=== PATIENT | male | born 1990 | race Caucasian/White ===

== ENCOUNTER → 2016-11-01 | Outpatient (CLI) | payer OTHER ==
--- NOTE | 2016-11-01 13:18 | XR ---
EXAMINATION TYPE: XR knee complete RT DATE OF EXAM: 11/01/2016 CLINICAL HISTORY: Right knee pain and swelling after injury. TECHNIQUE: Three views of the right knee are obtained. COMPARISON: None. FINDINGS: There is no acute fracture/dislocation evident in right knee. The tri-compartment joint s paces appear within normal limits. Increased density suprapatellar bursa could reflect moderate joint effusion, nonspecific finding. IMPRESSION: There is no acute fracture or dislocation in the right knee. Possible moderate suprapate llar joint effusion.
== END | disposition home or self-care (01) ==
LOC: RADXRMAIN 12:59
PROVIDERS: ATTEND Emergency Medicine
DX: S83.401A Sprain of unspecified collateral ligament of right knee, initial encounter (principal)

== ENCOUNTER → 2016-11-09 | Outpatient (CLI) | payer OTHER ==
--- NOTE | 2016-11-09 13:38 | MR ---
EXAMINATION TYPE: MR knee RT wo con DATE OF EXAM: 11/09/2016 COMPARISON: NONE HISTORY: Sprain of collateral ligament, right knee. Injury. TECHNIQUE: Multiplanar, multisequence imaging of the right knee is performed without IV contrast. FINDINGS: MEDIAL MENISCUS: Anterior and posterior horns are intact without tear. LATERAL MENISCUS: Anterior and posterior horns are intact without tear. Anterior and posterior roots appear intact. Meniscal femoral ligaments are intact. CRUCIATE LIGAMENTS: The anterior and posterior cruciate ligaments are intact and unremarkable. COLLATERAL LIGAMENTS: The medial collateral ligament and lateral collateral ligament complex are inta ct . However, there is high signal seen superficial to the medial collateral ligament suggesting a gr lorne 1 sprain. EXTENSOR MECHANISM: Visualized quadriceps and patellar tendons are intact. EFFUSION: Moderate suprapatellar joint effusion is seen without evidence of synovitis or abnormal th ickening of the plica. Patellar retinacula are intact.. POPLITEAL CYST: No popliteal/metcalf cyst. TRICOMPARTMENT SPACES: Unremarkable. CARTILAGE: Focal full-thickness cartilaginous defect is appreciated in the lateral weightbearing surf carla of the femoral condyle measuring 7.7 mm x 7.1 mm. Increased bone marrow signal deep to this is th ought to be related to the recent injury rather than the chondral defect. BONE MARROW SIGNAL: Osseous contusion is seen of the anterior distal lateral femoral condyle with cor responding increased PD signal and decreased T1 signal. No contusion is seen of the tibia laterally, however medially there is osseous contusion anteriorly with overlying subcutaneous edema. OTHER: Subcutaneous edema is seen within the popliteal fossa with no focal fluid collection.. IMPRESSION: 1. Grade 1 medial collateral ligament sprain with no tear. 2. Osseous contusion of the anterior distal lateral femoral condyle and medial anterior tibia with as sociated soft tissue swelling 3. Moderate suprapatellar joint effusion with no evidence of synovitis. 4. Focal full-thickness cartilaginous defects of the weightbearing surface of the distal lateral femo ral condyle.
== END | disposition home or self-care (01) ==
LOC: RADMRIMAIN 07:13
PROVIDERS: ATTEND Emergency Medicine
DX: S83.411A Sprain of medial collateral ligament of right knee, initial encounter (principal); S70.11XA Contusion of right thigh, initial encounter; S80.11XA Contusion of right lower leg, initial encounter; M25.461 Effusion, right knee

== ENCOUNTER → 2018-08-01 | Outpatient (CLI) | payer BC ==
--- NOTE | 2018-08-01 21:39 | MR ---
EXAMINATION TYPE: MR knee RT wo con DATE OF EXAM: 08/01/2018 COMPARISON: Prior MRI right knee November 09, 2016. HISTORY: Pain in right knee per order. Outer pain and locking for one year after sports injury per pa tient. TECHNIQUE: Multiplanar, multisequence images of the knee is performed without IV contrast. FINDINGS: MEDIAL MENISCUS: Anterior and posterior horns are intact without tear. LATERAL MENISCUS: Anterior and posterior horns are intact without tear. CRUCIATE LIGAMENTS: The anterior and posterior cruciate ligaments are intact and unremarkable. COLLATERAL LIGAMENTS: The medial collateral ligament and lateral collateral ligament complex are inta ct and unremarkable. EXTENSOR MECHANISM: Visualized quadriceps and patellar tendons are intact. EFFUSION: No significant suprapatellar joint effusion. POPLITEAL CYST: No popliteal/metcalf cyst. TRICOMPARTMENT SPACES: Tricompartment joint spaces are fairly well maintained. Mild tibial condylar s purring is present. CARTILAGE: No significant chondromalacia patella. BONE MARROW SIGNAL: There is new heterogeneous incr eased T2 signal involving anterolateral tibial plateau sagittal image 24 for reference. There is an a dditional area of heterogeneous increased T2 signal with focus of low T1 signal measuring 7 to 8 mm t ransversely coronal image 20 x 14 mm AP diameter sagittal image 22 involving the distal lateral femor al condyle. Some thinning and adjacent fissuring of articular cartilage is noted. OTHER: No additional significant abnormality is appreciated. IMPRESSION: 1. New large area of osseous contusion and/or bone marrow edema involving the anterior half of the la teral tibial plateau with adjacent area of involvement centrally in the distal lateral femoral condyl e, latter felt to reflect progression of osteochondral defect. No free osteochondral fragment noted. 2. No meniscal or ligamentous tears are seen.
== END ==
LOC: RADMRIMAIN 08:07
PROVIDERS: ATTEND Orthopaedic Surgery
DX: M25.561 Pain in right knee (principal)

== ENCOUNTER → 2018-09-07 | Outpatient (CLI) | payer BC ==
[2018-09-07 13:06] LABS: Basophils % (A) 1 %; Eosinophils # (A) 0.1 k/uL (0-0.7); Eosinophils % (A) 3 %; HCT 42.5 % (39.0-53.0); Lymphocytes # (A) 1.1 k/uL (1.0-4.8); Lymphocytes % (A) 27 %; MCH 28.5 pg (25.0-35.0); MCV 86.3 fL (80.0-100.0); Mean Platelet Volume 7.7; Monocytes # (A) 0.4 k/uL (0-1.0); Monocytes % (A) 9 %; Neutrophils # (A) 2.4 k/uL (1.3-7.7); Neutrophils % (A) 58 %; Platelet Count 208 k/uL (150-450); RBC 4.92 m/uL (4.30-5.90); RDW 13.2 % (11.5-15.5); WBC 4.1 k/uL (3.8-10.6)
[2018-09-07 13:20] LABS: Potassium 4.5 mmol/L (3.5-5.1)
== END | disposition home or self-care (01) ==
LOC: LABPAT 12:23
PROVIDERS: ATTEND Orthopaedic Surgery
DX: Z01.812 Encounter for preprocedural laboratory examination (principal); M23.91 Unspecified internal derangement of right knee
CPT/HCPCS: 80051; 85025

== ENCOUNTER → 2018-09-14 | Day surgery (SDC) | payer BC ==
[2018-09-11 13:02] VITALS: BMI 22.4
--- NOTE | 2018-09-13 10:08 | HP ---
HISTORY AND PHYSICAL CHIEF COMPLAINT: Right knee pain. 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 He notes another player fell on him. He notes lateral pain along with difficulty with standing and walking. He notes his knee feels unstable. It intermittently swells. It bothers him daily. He has tried anti- inflammatories without much relief. PAST MEDICAL HISTORY: Negative. PAST SURGICAL HISTORY: Negative. CURRENT MEDICATIONS: Doxycycline. ALLERGIES: He has allergies to CEFTIN. FAMILY HISTORY: Significant for cancer. SOCIAL HISTORY: Negative for current tobacco or alcohol use. REVIEW OF SYSTEMS: Sixteen-point review of systems otherwise reviewed and is noncontributory. PHYSICAL EXAMINATION: On examination, the patient is approximately 6 feet 1 inch, 170 pounds of mesomorphic habitus. HEENT exam is nonfocal. Neck is supple. He has painless passive motion of the right hip. Straight leg raise is negative. Active motion right knee -4 to 140 degrees of flexion. He is tender about the lateral joint line. Collaterals are stable, Nishi's negative, Anna's elicits lateral pain. His distal neurovascular exam appears intact in the right lower extremity. MRI report from 08/01/2018 shows a questionable osteochondral defect about the lateral femoral condyle in addition to extensive edema involving the lateral tibial plateau. IMPRESSION: Internal derangement right knee with lateral femoral condyle chondral injury. RECOMMENDATIONS: I talked to the patient at length regarding his condition along with treatment options. At this point, he is quite symptomatic and opts to proceed with surgery. We will plan to proceed with arthroscopic evaluation with possible lateral femoral chondrectomy and possible microfracture. Risks and benefits were discussed at length in layman's terms. We will likely perform that as an outpatient procedure. MMODL / IJN: [id number] /
[~2018-09-14] MED LIST: CLINDAMYCIN 600 MG in DEXTROSE 5% IN WATER 50 ML IVPB ONE; DEXAMETHASONE SOD PHOSPHATE 10 MG/ML 1 ML VIAL IV ONE; EPINEPHrine (PF) 1 ML in SODIUM CHLORIDE 0.9% IRRIGATIO 3,000 ML IRRIGATION ONE; HYDROcodone/APAP 5-325MG 1 EACH TAB PO ONE; LACTATED RINGERS 1,000 ML IV SCH; LIDOCAINE 1% 20 ML VIAL (10MG/ML) FOR IV START INTRADERMA ONE; LIDOCAINE 1% INJ 10MG/ML (20 ML MDV) ONE; MIDAZOLAM 2 MG/2 ML VIAL IV PRN; MIDAZOLAM 2 MG/2 ML VIAL ONE; ONDANSETRON 4 MG/2 ML VIAL IVP ONE; PROPOFOL 10 MG/ML 20 ML VIAL IV ONE; SCOPOLAMINE 1.5MG/72HR PATCH TRANSDERM ONE; fentaNYL (PF) 50 MCG/ML 2 ML AMP ONE
--- NOTE | 2018-09-14 11:15 | P.OP ---
Date of Procedure: 09/14/18 Preoperative Diagnosis: Right knee internal derangement Postoperative Diagnosis: Right knee grade 3/4 chondral injury distal lateral femoral condyle, loose body 2 Procedure(s) Performed: Right knee arthroscopic lateral femoral chondrectomy, microfracture lateral femoral condyle, loose body removal 2 measuring 5 x 8 mm and 1 x 1 cm. Anesthesia: PHILIPPE Surgeon: Sander Lee Estimated Blood Loss (ml): 10 Pathology: none sent Condition: stable Disposition: PACU Indications for Procedure: The patient is a 27-year-old male who presents with progressive right knee pain and mechanical symptoms after previous injury despite conservative measures. A discussion of the risks and benefits of operative intervention versus continued conservative measures was made with patient. He opted to proceed with surgery. Operative risks to include infection, neurovascular injury, development of blood clots, possible incomplete resolution of symptoms, possible worsening symptoms and need for subsequent procedures was discussed. Informed consent was obtained. Operative Findings: As below Description of Procedure: The patient was brought to the operating room, and after induction of general anesthesia examined the right knee. Collaterals were stable, Nishi was negative, and posterior drawer was negative. The right lower extremity was prepped and draped in a normal fashion. A superior lateral portal was made through a 3 mm skin incision superior and lateral to the patella. This was used for outflow. A lateral portal was made through a 5 mm vertical skin incision lateral to the patella tendon above the joint line. Diagnostic arthroscopy was performed. On inspection of the medial compartment, no significant meniscal or cartilage pathology was noted. On inspection of the notch, the anterior cruciate ligament appeared to be intact. On inspection of the lateral compartment there was a grade 3/4 chondral injury measuring 5 x 8 mm on the distal lateral portion of the lateral femoral condyle. There was a loose chondral fragment debrided back to stable base with a motorized shaver. 2 loose bodies were noted in the lateral compartment removed with a grasper. A did extended medial incision to help facilitate this. The first measured 1 x 1 cm, and the second 5 x 8 mm. No significant meniscal pathology was noted. On inspection of the patellofemoral articulation there was mild chondral fibrillation however no loose chondral fragments. The gutters were clear debris. The knee was then thoroughly irrigated. The portals were closed with Steri-Strips. A sterile dressing was applied in addition to a compression stocking. The patient was awoken from general anesthesia and transferred to recovery room in good condition. Blood loss was estimated at 10 mL. No complications were incurred.
[2018-09-14 11:26] VITALS: TEMP 97.1
[2018-09-14] MEDS: HYDROmorphone 0.5 MG/0.5 ML SYRINGE IVP PRN ×2 (11:42→11:47)
[2018-09-14 12:26] VITALS: BP 124/80; PULSE 62; RESP 16
== END | disposition home or self-care (01) ==
LOC: OR 08:57
PROVIDERS: ATTEND Orthopaedic Surgery
DX: S89.91XA Unspecified injury of right lower leg, initial encounter (principal); M23.41 Loose body in knee, right knee; Y93.22 Activity, ice hockey; Z79.899 Other long term (current) drug therapy; Z88.1 Allergy status to other antibiotic agents
CPT/HCPCS: 29879; J2250; J1100; J2405; J0171; J2001; J3010; J2704; J1170

== ENCOUNTER → 2019-09-11 | Outpatient (CLI) | payer BC ==
[2019-09-11 12:05] LABS: Basophils # (A) 0.1 k/uL (0-0.2); Basophils % (A) 1 %; Eosinophils # (A) 0.2 k/uL (0-0.7); Eosinophils % (A) 5 %; HCT 43.3 % (39.0-53.0); HGB 14.8 gm/dL (13.0-17.5); Lymphocytes # (A) 1.1 k/uL (1.0-4.8); Lymphocytes % (A) 26 %; MCH 29.7 pg (25.0-35.0); MCHC 34.1 g/dL (31.0-37.0); MCV 87.2 fL (80.0-100.0); Mean Platelet Volume 8.5; Monocytes # (A) 0.3 k/uL (0-1.0); Monocytes % (A) 7 %; Neutrophils # (A) 2.5 k/uL (1.3-7.7); Neutrophils % (A) 58 %; Platelet Count 209 k/uL (150-450); RBC 4.96 m/uL (4.30-5.90); WBC 4.3 k/uL (3.8-10.6)
[2019-09-11 18:34] LABS: African American GFR (CKD) 104.6 (60.0-200.0); Albumin 4.5 g/dL (3.80-4.90); Albumin/Globulin Ratio 1.88 (1.60-3.17); BUN/Creat Ratio 10.91 Ratio (12.00-20.00); Calcium 9.4 mg/dL (8.7-10.3); Globulin 2.4 g/dL (1.6-3.3); Non-African American GFR(CKD) 90.2 (60.0-200.0); Potassium 4.5 mmol/L (3.5-5.5); Total Bilirubin 0.5 mg/dL (0.2-1.2); Total Protein 6.9 g/dL (6.2-8.2)
[2019-09-11 18:41] LABS: T4, Free (Free Thyroxine) 1.5 ng/dL (0.80-1.80)
== END | disposition home or self-care (01) ==
LOC: LABWHC1 10:21
PROVIDERS: ATTEND Internal Medicine
DX: K59.09 Other constipation (principal)
CPT/HCPCS: 36415; 80053; 84439; 84443; 85025

== ENCOUNTER 2019-10-10 09:52 | Day surgery (SDC) | payer BC ==
[2019-10-08 14:42] VITALS: BMI 21.7
[~2019-10-10 09:52] MED LIST changes: -CLINDAMYCIN 600 MG in DEXTROSE 5% IN WATER 50 ML IVPB ONE; -EPINEPHrine (PF) 1 ML in SODIUM CHLORIDE 0.9% IRRIGATIO 3,000 ML IRRIGATION ONE; -HYDROcodone/APAP 5-325MG 1 EACH TAB PO ONE; +HYDROmorphone 0.5 MG/0.5 ML SYRINGE IVP PRN; -LIDOCAINE 1% 20 ML VIAL (10MG/ML) FOR IV START INTRADERMA ONE; -LIDOCAINE 1% INJ 10MG/ML (20 ML MDV) ONE; -MIDAZOLAM 2 MG/2 ML VIAL IV PRN; -MIDAZOLAM 2 MG/2 ML VIAL ONE; -PROPOFOL 10 MG/ML 20 ML VIAL IV ONE; -SCOPOLAMINE 1.5MG/72HR PATCH TRANSDERM ONE; -fentaNYL (PF) 50 MCG/ML 2 ML AMP ONE
[2019-10-10 10:10] VITALS: TEMP 97.5
[2019-10-10] MEDS ORDERED: LIDOCAINE 1% (10MG/ML) FOR IV START INTRADERMA ONE (10:19)
[2019-10-10] MEDS ORDERED: PROPOFOL 10 MG/ML 20 ML VIAL IV ONE (10:47)
[2019-10-10] MEDS ORDERED: LIDOCAINE 1% INJ 10MG/ML (20 ML MDV) ONE (10:47)
[2019-10-10] MEDS ORDERED: IV FLUID CONTINUATION 250 ML IV ONE (11:17)
--- NOTE | 2019-10-10 11:17 | P.PCN ---
Date of Procedure: 10/10/19 Description of Procedure: BRIEF HISTORY: Patient is a 28-year-old male presenting for outpatient colonoscopy for altered bowel function. Patient had been seen in the gastroenterology clinic complaining of altered bowel function. No improvement with MiraLAX therapy. No prior endoscopy reported. PROCEDURE PERFORMED: Colonoscopy with biopsy. PREOPERATIVE DIAGNOSIS: Altered bowel function, no prior colonoscopy reported. ESTIMATED BLOOD LOSS: Minimal. IV sedation per Anesthesia. PROCEDURE: After informed consent was obtained, the patient, was brought into the endoscopy unit. IV sedation was administered by Anesthesia under continuous monitoring. Digital rectal examination was normal. Initially the Olympus CF-190 flexible video colonoscope was then inserted in the rectum, gradually advanced into the cecum without any difficulty. Careful examination was performed as the scope was gradually being withdrawn. Ileocecal valve and the appendiceal orifice were visualized and appeared normal. Prep was excellent. Mucosa of the cecum, ascending colon, transverse colon, descending colon, sigmoid colon, and rectum appeared normal, with biopsies of the right and left colon in the setting of altered bowel function. Normal-appearing terminal ileum with biopsies taken. Retroflexion was performed in the rectum and no lesions were seen, located internal hemorrhoids noted. The patient tolerated the procedure well. IMPRESSION: Normal-appearing colon from rectum to cecum, with biopsies of the right and left colon in the setting of altered bowel function. Normal-appearing terminal ileum, random biopsies taken. RECOMMENDATIONS: Findings of this examination were discussed with the patient. Okay to resume diet. Okay to resume medication. Continue twice daily MiraLAX therapy. Follow up in clinic as previously scheduled.
[2019-10-10 11:50] VITALS: RESP 20
[2019-10-10 11:52] VITALS: BP 111/68; PULSE 67
== END 2019-10-10 12:06 | disposition home or self-care (01) ==
LOC: ORWHC2ENDO 09:52
PROVIDERS: ATTEND Internal Medicine
DX: R19.4 Change in bowel habit (principal); Z88.1 Allergy status to other antibiotic agents; Z98.890 Other specified postprocedural states
CPT/HCPCS: 88305; 45380; J2001; J2704

== ENCOUNTER 2022-09-22 02:49 | Observation (INO) | payer BC ==
[2022-09-22] MEDS ORDERED: DEXAMETHASONE SOD PHOSPHATE 10 MG/ML 1 ML VIAL IVP STA (03:44)
--- NOTE | 2022-09-22 03:48 | ED ---
Skin/Abscess/FB HPI - General Chief complaint: Skin/Abscess/Foreign Body Stated complaint: Infection on scalp Time Seen by Provider: 09/22/22 03:15 Source: patient, RN notes reviewed, old records reviewed Mode of arrival: ambulatory Limitations: no limitations - History of Present Illness Initial comments: This is a 29-year-old male DF for evaluation patient Dese for evaluation of significant swelling scalp with hair loss. Patient does admit to significant hair loss currently and swelling recently on antibiotics with treatment for folliculitis and had improvement. Patient symptoms about a month now with increasing and worse hair loss, antibiotics currently not working MD complaint: rash, abscess/boil, discoloration, other (Hair loss on scalp) -: month(s) Location: head Severity: severe Severity scale (1-10): 8 Consistency: constant Improves with: none Worsens with: none Context: new medication, recent illness, recent antibiotic Associated symptoms: denies other symptoms Treatments Prior to Arrival: antibiotic - Related Data Home Medications Medication Instructions Recorded Confirmed Doxycycline Hyclate 100 mg PO BID 09/22/22 09/22/22 Ibuprofen [Advil] 200 - 600 mg PO Q8H PRN 09/22/22 09/22/22 Previous Rx's Medication Instructions Recorded Docusate [Colace] 100 mg PO BID PRN #60 capsule 09/24/22 Famotidine [Pepcid] 20 mg PO BID #30 tab 09/24/22 Ferrous Sulfate [Feosol] 325 mg PO DAILY #30 tab 09/24/22 Allergies Allergy/AdvReac Type Severity Reaction Status Date / Time cefuroxime [From Ceftin] AdvReac Diarrhea Verified 09/22/22 08:17 Review of Systems ROS Statement: Those systems with pertinent positive or pertinent negative responses have been documented in the HPI. ROS Other: All systems not noted in ROS Statement are negative. Past Medical History Past Medical History: Skin Disorder Additional Past Medical History / Comment(s): acne, constipation, blood in stool. History of Any Multi-Drug Resistant Organisms: None Reported Past Surgical History: Orthopedic Surgery Additional Past Surgical History / Comment(s): cyst on back removedd, arthroscopy knee. Past Anesthesia/Blood Transfusion Reactions: No Reported Reaction Past Psychological History: No Psychological Hx Reported Smoking Status: Never smoker Past Alcohol Use History: Occasional Past Drug Use History: None Reported - Past Family History Mother Family Medical History: No Reported History General Exam - General Exam Comments Initial Comments: Significant hair loss to the scalp with body edematous area Limitations: no limitations General appearance: alert, in no apparent distress Head exam: Present: atraumatic, normocephalic, normal inspection, other (Significant swelling and abscess to the scale) Eye exam: Present: normal appearance, PERRL, EOMI. Absent: scleral icterus, conjunctival injection, periorbital swelling ENT exam: Present: normal exam, mucous membranes moist Neck exam: Present: normal inspection. Absent: tenderness, meningismus, lymph adenopathy Respiratory exam: Present: normal lung sounds bilaterally. Absent: respiratory distress, wheezes, rales, rhonchi, stridor Cardiovascular Exam: Present: regular rate, normal rhythm, normal heart sounds. Absent: systolic murmur, diastolic murmur, rubs, gallop, clicks GI/Abdominal exam: Present: soft, normal bowel sounds. Absent: distended, tenderness, guarding, rebound, rigid Extremities exam: Present: normal inspection, full ROM, normal capillary refill. Absent: tenderness, pedal edema, joint swelling, calf tenderness Back exam: Present: normal inspection Neurological exam: Present: alert, oriented X3, CN II-XII intact Psychiatric exam: Present: normal affect, normal mood Skin exam: Present: warm, dry, intact, normal color. Absent: rash Course Vital Signs 09/22/22 03:04 Temperature 98.6 F Pulse Rate 102 H Respiratory 18 Rate Blood Pressure 138/90 O2 Sat by Pulse 98 Oximetry - Reevaluation(s) Reevaluation #1: 09/22/22 03:56 Medical records reviewed Reevaluation #2: 09/22/22 03:57 Patient symptoms unchanged Reevaluation #3: 09/22/22 06:19 Patient informed results and questions answered Reevaluation #4: 09/22/22 03:57 Was pt. sent in by a medical professional or institution? @ -no Did you speak to anyone other than the patient for history? @ -no Did you review nursing and triage notes? @ -agree Were old charts reviewed? @ -yes Differential Diagnosis? @ -prior EKG interpreted by me (3pts min.)? @ -no X-rays interpreted by me (1pt min.)? @ -no CT interpreted by me (1pt min.)? @ -yes U/S interpreted by me (1pt. min.)? @ -no What testing was considered but not performed? (CT, X-rays, U/S, labs)? Why? @ -no What meds were considered but not given? Why? @ -no Did you discuss the management of the patient with other professionals? @ -no Did you reconcile home meds? @ -no Was smoking cessation discussed for >3mins.? @ -no Was critical care preformed (if so, how long)? @ -no Were there social determinants of health that impacted care today? How? (Homelessness, low income, unemployed, alcoholism, drug addiction, transportation, low edu. Level, literacy, decrease access to med. care, residential, rehab)? @ -no Was there de-escalation of care discussed even if they declined? (Discuss DNR or withdrawal of care, Hospice)? @ -no What co-morbidities impacted this encounter? (DM, HTN, Smoking, COPD, CAD, Cancer, CVA, Hep., AIDS, mental health diagnosis, sleep apnea, morbid obesity)? @ -none Was patient admitted / discharged? @ -31 male to the emergency department for evaluation presents today for evaluation in regards to significant swelling of scalp, scalp abscess, patient does have significant swelling and called spot, alopecia and folliculitis. Will place patient on antibiotics and antifungal and monitoring of hemoglobin Admitted Undiagnosed new problem with uncertain prognosis? @ -no Drug Therapy requiring intensive monitoring for toxicity (Heparin, Nitro, Insulin, Cardizem)? @ -no Were any procedures done? @ -no Diagnosis/symptom? @ -Scalp abscess Acute, or Chronic, or Acute on Chronic? @ -acute Uncomplicated (without systemic symptoms) or Complicated (systemic symptoms)? @ -complicated Side effects of treatment? @ -no Exacerbation, Progression, or Severe Exacerbation] @ -no Poses a threat to life or bodily function? @ -yes with severe infection - Consultations Consultation #1: Spoke with admitting physicians agreeable admit this patient Medical Decision Making - Medical Decision Making 31 male to the emergency department for evaluation presents today for evaluation in regards to significant swelling of scalp, scalp abscess, patient does have significant swelling and called spot, alopecia and folliculitis. Will place madelaine schuster on antibiotics and antifungal and monitoring of hemoglobin - Lab Data Result diagrams: 09/24/22 06:38 09/24/22 06:38 Lab Results 09/22/22 09/22/22 09/22/22 Range/Units 04:13 04:13 04:13 WBC 11.2 H (3.8-10.6) k/uL RBC 3.62 L (4.30-5.90) m/uL Hgb 8.6 L (13.0-17.5) gm/dL Hct 27.4 L (39.0-53.0) % MCV 75.7 L (80.0-100.0) fL MCH 23.7 L (25.0-35.0) pg MCHC 31.4 (31.0-37.0) g/dL RDW 15.0 (11.5-15.5) % Plt Count 369 (150-450) k/uL MPV 9.0 Neutrophils % 77 % Lymphocytes % 12 % Monocytes % 6 % Eosinophils % 4 % Basophils % 1 % Neutrophils # 8.6 H (1.3-7.7) k/uL Lymphocytes # 1.3 (1.0-4.8) k/uL Monocytes # 0.6 (0-1.0) k/uL Eosinophils # 0.4 (0-0.7) k/uL Basophils # 0.1 (0-0.2) k/uL Hypochromasia Marked Poikilocytosis Slight Microcytosis Slight PT 10.8 (9.0-12.0) sec INR 1.0 (<1.2) APTT 22.5 (22.0-30.0) sec Sodium 136 L (137-145) mmol/L Potassium 3.6 (3.5-5.1) mmol/L Chloride 105 (98-107) mmol/L Carbon Dioxide 23 (22-30) mmol/L Anion Gap 8 mmol/L BUN 6 L (9-20) mg/dL Creatinine 0.98 (0.66-1.25) mg/dL Est GFR (CKD-EPI)AfAm >90 (>60 ml/min/1.73 sqM) Est GFR (CKD-EPI)NonAf >90 (>60 ml/min/1.73 sqM) Glucose 120 H (74-99) mg/dL Calcium 8.5 (8.4-10.2) mg/dL Phosphorus 2.9 (2.5-4.5) mg/dL Magnesium 1.9 (1.6-2.3) mg/dL Iron (65-175) UG/DL TIBC (228-460) UG/DL % Saturation (15.00-50.00) Transferrin (204.0-354.0) mg/dL Total Bilirubin 0.4 (0.2-1.3) mg/dL AST 22 (17-59) U/L ALT 13 (4-49) U/L Alkaline Phosphatase 65 (38-126) U/L Total Protein 6.6 (6.3-8.2) g/dL Albumin 3.2 L (3.5-5.0) g/dL Blood Type Confirm 09/22/22 09/22/22 Range/Units 04:13 04:13 WBC (3.8-10.6) k/uL RBC (4.30-5.90) m/uL Hgb (13.0-17.5) gm/dL Hct (39.0-53.0) % MCV (80.0-100.0) fL MCH (25.0-35.0) pg MCHC (31.0-37.0) g/dL RDW (11.5-15.5) % Plt Count (150-450) k/uL MPV Neutrophils % % Lymphocytes % % Monocytes % % Eosinophils % % Basophils % % Neutrophils # (1.3-7.7) k/uL Lymphocytes # (1.0-4.8) k/uL Monocytes # (0-1.0) k/uL Eosinophils # (0-0.7) k/uL Basophils # (0-0.2) k/uL Hypochromasia Poikilocytosis Microcytosis PT (9.0-12.0) sec INR (<1.2) APTT (22.0-30.0) sec Sodium (137-145) mmol/L Potassium (3.5-5.1) mmol/L Chloride (98-107) mmol/L Carbon Dioxide (22-30) mmol/L Anion Gap mmol/L BUN (9-20) mg/dL Creatinine (0.66-1.25) mg/dL Est GFR (CKD-EPI)AfAm (>60 ml/min/1.73 sqM) Est GFR (CKD-EPI)NonAf (>60 ml/min/1.73 sqM) Glucose (74-99) mg/dL Calcium (8.4-10.2) mg/dL Phosphorus (2.5-4.5) mg/dL Magnesium (1.6-2.3) mg/dL Iron 8 L (65-175) UG/DL TIBC 323 (228-460) UG/DL % Saturation 2.48 L (15.00-50.00) Transferrin 231.0 (204.0-354.0) mg/dL Total Bilirubin (0.2-1.3) mg/dL AST (17-59) U/L ALT (4-49) U/L Alkaline Phosphatase (38-126) U/L Total Protein (6.3-8.2) g/dL Albumin (3.5-5.0) g/dL Blood Type Confirm A Positive - Radiology Data Radiology results: report reviewed (CT brain does show abscess like change), image reviewed Disposition Clinical Impression: Folliculitis, Alopecia, Anemia, Tachycardia Disposition: ADMITTED IP TO THIS [facility] Condition: Good Is patient prescribed a controlled substance at d/c from ED?: No Time of Disposition: 06:00
[2022-09-22] MEDS ORDERED: KETOROLAC 15 MG/ML 1 ML VIAL IVP STA (04:25)
[2022-09-22] MEDS ORDERED: MORPHINE SULFATE 4 MG/ML SYRINGE IVP STA (04:25)
[2022-09-22 04:26] LABS: Basophils # (A) 0.1 k/uL (0-0.2); Basophils % (A) 1 %; Eosinophils # (A) 0.4 k/uL (0-0.7); Eosinophils % (A) 4 %; HCT 27.4 % (39.0-53.0); HGB 8.6 gm/dL (13.0-17.5); Hypochromasia Marked; Lymphocytes # (A) 1.3 k/uL (1.0-4.8); Lymphocytes % (A) 12 %; MCH 23.7 pg (25.0-35.0); MCHC 31.4 g/dL (31.0-37.0); MCV 75.7 fL (80.0-100.0); Microcytosis Slight; Monocytes # (A) 0.6 k/uL (0-1.0); Monocytes % (A) 6 %; Neutrophils # (A) 8.6 k/uL (1.3-7.7); Neutrophils % (A) 77 %; Platelet Count 369 k/uL (150-450); Poikilocytosis Slight; RBC 3.62 m/uL (4.30-5.90); WBC 11.2 k/uL (3.8-10.6)
[2022-09-22 04:36] LABS: Partial Thromboplastin Time 22.5 sec (22.0-30.0); Prothrombin Time 10.8 sec (9.0-12.0)
[2022-09-22 04:41] LABS: ALT 13 U/L (4-49); AST 22 U/L (17-59); African American GFR (CKD) >90 (>60 ml/min/1.73 sqM); Albumin 3.2 g/dL (3.5-5.0); Alkaline Phosphatase 65 U/L (38-126); Anion Gap 8 mmol/L; Blood Urea Nitrogen 6 mg/dL (9-20); Calcium 8.5 mg/dL (8.4-10.2); Carbon Dioxide 23 mmol/L (22-30); Chloride 105 mmol/L (98-107); Glucose 120 mg/dL (74-99); Magnesium 1.9 mg/dL (1.6-2.3); Non-African American GFR(CKD) >90 (>60 ml/min/1.73 sqM); Phosphorus 2.9 mg/dL (2.5-4.5); Potassium 3.6 mmol/L (3.5-5.1); Sodium 136 mmol/L (137-145); Total Bilirubin 0.4 mg/dL (0.2-1.3); Total Protein 6.6 g/dL (6.3-8.2)
[2022-09-22] MEDS ORDERED: MORPHINE SULFATE 4 MG/ML SYRINGE IV PRN (06:13)
[2022-09-22] MEDS ORDERED: ONDANSETRON 4 MG/2 ML VIAL IVP PRN (06:13)
[2022-09-22] MEDS ORDERED: NALOXONE 0.4 MG/ML 1 ML VIAL IV PRN (06:13)
[2022-09-22] MEDS: SODIUM CHLORIDE 0.9% 1,000 ML IV SCH ×2 (06:54→14:22)
[2022-09-22] MEDS ORDERED: RX INFO: IV CONTRAST WAS GIVEN 1 EACH MISC MISCELLANE PRN (12:40)
[2022-09-22] MEDS ORDERED: VANCOMYCIN IV PER PHARMACY 1 EACH MISC MISCELLANE PRN (13:28)
--- NOTE | 2022-09-22 13:30 | CT ---
EXAMINATION TYPE: CT brain w con CT DLP: 1162.8 mGycm, Automated exposure control for dose reduction was used. DATE OF EXAM: 09/22/2022 1:14 PM COMPARISON: None. CLINICAL INDICATION:Male, 31 years old with history of head abscess; abscess to top of head TECHNIQUE: Axial CT images of the brain were obtained with coronal and sagittal reformats created and reviewed. Contrast used:100 mL of Isovue 300 with IV Contrast, Oral contrast used: none. FINDINGS: Extra-axial spaces: No abnormal extra-axial fluid collections. Ventricular system: Within normal limits Cerebral parenchyma: No acute intraparenchymal hemorrhage or mass effect. The bee-white junction is well differentiated. No abnormal enhancement is seen after the administration of intravenous contras t. Cerebellum: Unremarkable. Mass effect: No evidence of midline shift. Intracranial vasculature: unremarkable Soft tissues: Soft tissue thickening along the skull vertex. No definitive organizing fluid collectio n visualized. This does extend along the skull at least 8.4 x 5.1 cm. Calvarium/osseous structures: No depressed skull fracture. Paranasal sinuses and mastoid air cells: Clear. Visualized orbits: Orbital contents are intact. IMPRESSION: 1. Suspected phlegmonous change to the skull vertex. No evidence of osseous erosion. No focal fluid collection definitively visualized. 2. No acute intracranial process.
[2022-09-22] MEDS ORDERED: KETOROLAC 15 MG/ML 1 ML VIAL IVP PRN (14:11)
--- NOTE | 2022-09-22 14:12 | P.HPIM ---
History of Present Illness 31-year-old the male came in the with probably colitis which troponin to assess the patient is on antibiotic and multiple. Patient has Abscess which drained general surgery was consulted infectious disease was consulted patient was started on vancomycin IV patient is ALLERGIC to cephalosporins. Patient does have leukocytosis tachycardia without any fever patient is also anemic but no evidence of acute the upper or lower GI bleed clinically. Iron panel and ferritin levels were obtained and results are pending REVIEW OF SYSTEMS: CONSTITUTIONAL: No fever, no malaise, no fatigue. HEENT: No recent visual problems or hearing problems. Denied any sore throat. CARDIOVASCULAR: No chest pain, orthopnea, PND, no palpitations, no syncope. PULMONARY: No shortness of breath, no cough, no hemoptysis. GASTROINTESTINAL: No diarrhea, no nausea, no vomiting, no abdominal pain. NEUROLOGICAL: No headaches, no weakness, no numbness. HEMATOLOGICAL: Denies any bleeding or petechiae. GENITOURINARY: Denies any burning micturition, frequency, or urgency. MUSCULOSKELETAL/RHEUMATOLOGICAL: Denies any joint pain, swelling, or any muscle pain. ENDOCRINE: Denies any polyuria or polydipsia. The rest of the 14-point review of systems is negative. PHYSICAL EXAMINATION: GENERAL: The patient is alert and oriented x3, not in any acute distress. Well developed, well nourished. HEENT: Pupils are round and equally reacting to light. EOMI. No scleral icterus. No conjunctival pallor. Normocephalic, atraumatic. No pharyngeal erythema. No thyromegaly. CARDIOVASCULAR: S1 and S2 present. No murmurs, rubs, or gallops. PULMONARY: Chest is clear to auscultation, no wheezing or crackles. ABDOMEN: Soft, nontender, nondistended, normoactive bowel sounds. No palpable organomegaly. MUSCULOSKELETAL: No joint swelling or deformity. EXTREMITIES: No cyanosis, clubbing, or pedal edema. NEUROLOGICAL: Gross neurological examination did not reveal any focal deficits. SKIN: 3 in to 5 cm abscess in the scalp Assessment and plan Scalp abscess: The drainage wound cultures were obtained, infectious disease evaluated the patient patient was started on IV vancomycin. Will need incision and drainage, Gen. surgery was consulted -Anemia most probably an deficiency will obtain iron panel. Denied any family history of thalassemia -Alopecia:: Outpatient evaluation by dermatology DVT prophylaxis: Early ambulation Past Medical History Past Medical History: Skin Disorder Additional Past Medical History / Comment(s): acne, constipation, blood in stool. History of Any Multi-Drug Resistant Organisms: None Reported Past Surgical History: Orthopedic Surgery Additional Past Surgical History / Comment(s): cyst on back removedd, arthroscopy knee. Past Anesthesia/Blood Transfusion Reactions: No Reported Reaction Past Psychological History: No Psychological Hx Reported Smoking Status: Never smoker Past Alcohol Use History: Occasional Past Drug Use History: None Reported - Past Family History Mother Family Medical History: No Reported History Medications and Allergies Home Medications Medication Instructions Recorded Confirmed Type Doxycycline Hyclate 100 mg PO BID 09/22/22 09/22/22 History Ibuprofen [Advil] 200 - 600 mg PO Q8H PRN 09/22/22 09/22/22 History Allergies Allergy/AdvReac Type Severity Reaction Status Date / Time cefuroxime [From Ceftin] AdvReac Diarrhea Verified 09/22/22 08:17 Physical Exam Vitals: Vital Signs Temp Pulse Pulse Resp BP BP Pulse Ox 09/22/22 14:06 98 F 83 18 122/73 100 09/22/22 03:04 98.6 F 102 H 18 138/90 98 Intake and Output 09/21/22 09/22/22 09/22/22 22:59 06:59 14:59 Intake Total 240 Balance 240 Intake: Oral 240 Other: # Voids 2 Weight 72.575 kg Results CBC & Chem 7: 09/22/22 04:13 09/22/22 04:13 Labs: Abnormal Lab Results - Last 24 Hours (Table) 09/22/22 09/22/22 Range/Units 04:13 04:13 WBC 11.2 H (3.8-10.6) k/uL RBC 3.62 L (4.30-5.90) m/uL Hgb 8.6 L (13.0-17.5) gm/dL Hct 27.4 L (39.0-53.0) % MCV 75.7 L (80.0-100.0) fL MCH 23.7 L (25.0-35.0) pg Neutrophils # 8.6 H (1.3-7.7) k/uL Sodium 136 L (137-145) mmol/L BUN 6 L (9-20) mg/dL Glucose 120 H (74-99) mg/dL Albumin 3.2 L (3.5-5.0) g/dL Thrombosis Risk Factor Assmnt - Choose All That Apply Any of the Below Risk Factors Present?: No Other Risk Factors: No Other congenital or acquired thrombophilia - If yes, enter type in comment: No Thrombosis Risk Factor Assessment Level: Very Low Risk
[2022-09-22] MEDS: VANCOMYCIN 1,250 MG in SODIUM CHLORIDE 0.9% 250 ML IVPB SCH ×2 (14:22→22:00)
--- NOTE | 2022-09-22 15:27 | P.GSCN ---
History of Present Illness Consult date: 09/22/22 History of present illness: CHIEF COMPLAINT: Head abscess HISTORY OF PRESENT ILLNESS: This is a 31-year-old male who presents to the hospital with complaints of head abscess since Monday. It's located on the left side top of his head. It is painful. The abscess was larger in size but he reports having had drainage from it today and it has gone down. However, there is still area of fluctuance and it is very tender. Patient reports that he had similar symptoms in July but there were smaller bumps that are improved with antibiotics. He denies any fever chills or sweats. Denies any history of diabetes or MRSA. He had a computed tomography scan of the brain completed that shown suspected phlegmonous changes to the skull vertex. No evidence of osseous erosion. No focal fluid collection definitively visualized. No acute intracranial process. PAST MEDICAL HISTORY: Acne, Constipation PAST SURGICAL HISTORY: See below MEDICATIONS: See below ALLERGIES: See below SOCIAL HISTORY: No illicit drug use. REVIEW OF SYSTEMS: CONSTITUTIONAL: Denies fever or chills. HEENT: Denies blurred vision, vision changes, or eye pain. Denies hemoptysis CARDIOVASCULAR: Denies chest pain or pressure. RESPIRATORY: No shortness of breath. GASTROINTESTINAL: See HPI for pertinent findings HEMATOLOGIC: Denies bleeding disorders. GENITOURINARY: Denies any blood in urine or increased urinary frequency. SKIN: Denies pruitis. Denies rash. PHYSICAL EXAM: VITAL SIGNS: Reviewed GENERAL: Well-developed in no acute distress. HEAD: Patient has left scalp abscess on the top of his head. Area is fluctuant and very tender. No erythema. No drainage at this time. ABDOMEN: Soft. Nondistended. Nontender NEUROLOGIC: Alert and oriented. Cranial nerves II through XII grossly intact. LABORATORY DATA: WBC 11.2 HGB 8.6 platelets 369 Sodium 136 potassium 3.6 creatinine 0.98 Culture pending IMAGING: Computed tomography scan as stated above ASSESSMENT: 1. Left scalp abscess PLAN: -Patient to have bedside incision and drainage of scalp abscess today with Dr. Joshi -Continue antibiotics -Continue supportive care -Continue pain management Thank you for this consultation Physician Engineering Leader note has been reviewed by physician. Signing provider agrees with the documented findings, assessment, and plan of care. Past Medical History Past Medical History: Skin Disorder Additional Past Medical History / Comment(s): acne, constipation, blood in stool. History of Any Multi-Drug Resistant Organisms: None Reported Past Surgical History: Orthopedic Surgery Additional Past Surgical History / Comment(s): cyst on back removedd, arthroscopy knee. Past Anesthesia/Blood Transfusion Reactions: No Reported Reaction Past Psychological History: No Psychological Hx Reported Smoking Status: Never smoker Past Alcohol Use History: Occasional Past Drug Use History: None Reported - Past Family History Mother Family Medical History: No Reported History Medications and Allergies Home Medications Medication Instructions Recorded Confirmed Type Doxycycline Hyclate 100 mg PO BID 09/22/22 09/22/22 History Ibuprofen [Advil] 200 - 600 mg PO Q8H PRN 09/22/22 09/22/22 History Allergies Allergy/AdvReac Type Severity Reaction Status Date / Time cefuroxime [From Ceftin] AdvReac Diarrhea Verified 09/22/22 08:17 Surgical - Exam Vital Signs Temp Pulse Resp BP Pulse Ox 98.6 F 102 H 18 138/90 98 09/22/22 03:04 09/22/22 03:04 09/22/22 03:04 09/22/22 03:04 09/22/22 03:04 Results - Labs 09/22/22 04:13 09/22/22 04:13 Abnormal Lab Results - Last 24 Hours (Table) 09/22/22 09/22/22 Range/Units 04:13 04:13 WBC 11.2 H (3.8-10.6) k/uL RBC 3.62 L (4.30-5.90) m/uL Hgb 8.6 L (13.0-17.5) gm/dL Hct 27.4 L (39.0-53.0) % MCV 75.7 L (80.0-100.0) fL MCH 23.7 L (25.0-35.0) pg Neutrophils # 8.6 H (1.3-7.7) k/uL Sodium 136 L (137-145) mmol/L BUN 6 L (9-20) mg/dL Glucose 120 H (74-99) mg/dL Albumin 3.2 L (3.5-5.0) g/dL Diabetes panel 09/22/22 Range/Units 04:13 Sodium 136 L (137-145) mmol/L Potassium 3.6 (3.5-5.1) mmol/L Chloride 105 (98-107) mmol/L Carbon Dioxide 23 (22-30) mmol/L BUN 6 L (9-20) mg/dL Creatinine 0.98 (0.66-1.25) mg/dL Glucose 120 H (74-99) mg/dL Calcium 8.5 (8.4-10.2) mg/dL AST 22 (17-59) U/L ALT 13 (4-49) U/L Alkaline Phosphatase 65 (38-126) U/L Total Protein 6.6 (6.3-8.2) g/dL Albumin 3.2 L (3.5-5.0) g/dL Calcium panel 09/22/22 Range/Units 04:13 Calcium 8.5 (8.4-10.2) mg/dL Phosphorus 2.9 (2.5-4.5) mg/dL Albumin 3.2 L (3.5-5.0) g/dL Pituitary panel 09/22/22 Range/Units 04:13 Sodium 136 L (137-145) mmol/L Potassium 3.6 (3.5-5.1) mmol/L Chloride 105 (98-107) mmol/L Carbon Dioxide 23 (22-30) mmol/L BUN 6 L (9-20) mg/dL Creatinine 0.98 (0.66-1.25) mg/dL Glucose 120 H (74-99) mg/dL Calcium 8.5 (8.4-10.2) mg/dL Adrenal panel 09/22/22 Range/Units 04:13 Sodium 136 L (137-145) mmol/L Potassium 3.6 (3.5-5.1) mmol/L Chloride 105 (98-107) mmol/L Carbon Dioxide 23 (22-30) mmol/L BUN 6 L (9-20) mg/dL Creatinine 0.98 (0.66-1.25) mg/dL Glucose 120 H (74-99) mg/dL Calcium 8.5 (8.4-10.2) mg/dL Total Bilirubin 0.4 (0.2-1.3) mg/dL AST 22 (17-59) U/L ALT 13 (4-49) U/L Alkaline Phosphatase 65 (38-126) U/L Total Protein 6.6 (6.3-8.2) g/dL Albumin 3.2 L (3.5-5.0) g/dL
[2022-09-22 17:11] LABS: % Iron Saturation 2.48 (15.00-50.00)
--- NOTE | 2022-09-22 20:11 | P.CONS ---
History of Present Illness - Reason for Consult Consult date: 09/22/22 head abscess Requesting physician: Rosalino Escobar - Chief Complaint pain and swelling to the head x few days - History of Present Illness Patient is a 31-year-old male Who recently did have a problem with folliculitis involving the scalp area for the patient has been treated with oral doxycycline with the patient has recently completed afterwards the patient noticed to having a increasing pain and swelling to the left side of his scalp patient denies any history of any trauma or fall patient describes the pain to be more of a sharp 6-7 out of 10 no radiation with associated swelling no foul- smelling drainage patient on presentation to the hospital was afebrile with a mild tachycardia heart rate of 102 white count of 11.2 with a left shift creatinine was normal liver enzymes are normal patient was admitted to the hospital infectious disease was consulted for further management on minimal pressure on arrival to express slight amount of pus which has been cultured CT of the head was requested to make sure no evidence of any cortical erosion as the patient's symptom has been going on for more than a month Review of Systems Positive point and negatives has been mentioned in the HPI, complete review of systems was performed and all other systems are negative Past Medical History Past Medical History: Skin Disorder Additional Past Medical History / Comment(s): acne, constipation, blood in stool. History of Any Multi-Drug Resistant Organisms: None Reported Past Surgical History: Orthopedic Surgery Additional Past Surgical History / Comment(s): cyst on back removedd, arth roscopy knee. Past Anesthesia/Blood Transfusion Reactions: No Reported Reaction Past Psychological History: No Psychological Hx Reported Smoking Status: Never smoker Past Alcohol Use History: Occasional Past Drug Use History: None Reported - Past Family History Mother Family Medical History: No Reported History Medications and Allergies Home Medications Medication Instructions Recorded Confirmed Type Doxycycline Hyclate 100 mg PO BID 09/22/22 09/22/22 History Ibuprofen [Advil] 200 - 600 mg PO Q8H PRN 09/22/22 09/22/22 History Docusate [Colace] 100 mg PO BID PRN #60 capsule 09/24/22 Rx Famotidine [Pepcid] 20 mg PO BID #30 tab 09/24/22 Rx Ferrous Sulfate [Feosol] 325 mg PO DAILY #30 tab 09/24/22 Rx Allergies Allergy/AdvReac Type Severity Reaction Status Date / Time cefuroxime [From Ceftin] AdvReac Diarrhea Verified 09/22/22 08:17 Physical Exam Vitals: Vital Signs Temp Pulse Resp BP Pulse Ox 09/22/22 03:04 98.6 F 102 H 18 138/90 98 Intake and Output 09/21/22 09/22/22 09/22/22 22:59 06:59 14:59 Other: Weight 72.575 kg GENERAL DESCRIPTION: Middle-aged male lying in bed, no distress. No tachypnea or accessory muscle of respiration use. HEENT: Shows Pallor , no scleral icterus. Oral mucous membrane is dry. pt did have a flutuant area on the scalp with some purulent drainage NECK: Trachea central, no thyromegaly. LUNGS: Unlabored breathing. Clear to auscultation anteriorly. No wheeze or crackle. HEART: S1, S2, regular rate and rhythm. ABDOMEN: Soft, no tenderness , guarding or rigidity EXTREMITIES: No edema of feet. SKIN: No rash, no masses palpable. NEUROLOGICAL: The patient is awake, alert, oriented x3, mood and affect normal. Results CBC & Chem 7: 09/24/22 06:38 09/24/22 06:38 Labs: Abnormal Lab Results - Last 24 Hours (Table) 09/22/22 09/22/22 Range/Units 04:13 04:13 WBC 11.2 H (3.8-10.6) k/uL RBC 3.62 L (4.30-5.90) m/uL Hgb 8.6 L (13.0-17.5) gm/dL Hct 27.4 L (39.0-53.0) % MCV 75.7 L (80.0-100.0) fL MCH 23.7 L (25.0-35.0) pg Neutrophils # 8.6 H (1.3-7.7) k/uL Sodium 136 L (137-145) mmol/L BUN 6 L (9-20) mg/dL Glucose 120 H (74-99) mg/dL Albumin 3.2 L (3.5-5.0) g/dL Assessment and Plan (1) Scalp abscess Status: Acute Code(s): L02.811 - CUTANEOUS ABSCESS OF HEAD [ANY PART, EXCEPT FACE] SNOMED Code(s): 74908600 Plan: 1patient was in the hospital with sepsis in this patient who did have a elevat ed white count tachycardia source is scalp abscess and concern for possible deep infection as the patient's symptom has been going on for more than a month recently completed course of oral doxycycline, CT of the head did not show any cortical erosion likely pathogen will be Staph aureus 2-patient with a cephalosporin allergy that will limit the number of antibiotics safe to use 3-local cultures have been obtained to guide further antibiotic therapy 4-vancomycin pharmacy to dose with a target trough of 15 while watching kidney function and Vanco trough closely. 5-General surgery consultation and drainage of the abscess along with deep culture We will follow on clinical condition and cultures to further adjust medication if needed Thank you for this consultation we will follow the patient along with you Time with Patient: Greater than 30
[2022-09-22] MEDS: FAMOTIDINE 20 MG TAB PO SCH (22:00)
[2022-09-23] MEDS: VANCOMYCIN 1,250 MG in SODIUM CHLORIDE 0.9% 250 ML IVPB SCH ×2 (06:06→15:51)
[2022-09-23] MEDS: SODIUM CHLORIDE 0.9% 1,000 ML IV SCH ×2 (06:06→18:11)
[2022-09-23 08:57] LABS: ALT 9 U/L (10-49); AST 19 U/L (14-35); Albumin 2.7 d/dL (3.8-4.9); Alkaline Phosphatase 40 U/L (41-126); Blood Urea Nitrogen 8.6 mg/dL (9.0-27.0); Calcium 8.2 mg/dL (8.7-10.3); Carbon Dioxide 23.1 mmol/L (21.6-31.8); Chloride 103 mmol/L (96-109); Globulin 2.7 d/dL (1.6-3.3); Glucose 100 mg/dL (70-110); Potassium 4.3 mmol/L (3.5-5.5); Sodium 134 mmol/L (135-145); Total Bilirubin <0.2 mg/dL (0.3-1.2); Total Protein 5.4 d/dL (6.2-8.2)
--- NOTE | 2022-09-23 08:57 | P.PN ---
Subjective Progress Note Date: 09/23/22 CHIEF COMPLAINT: Scalp abscess HISTORY OF PRESENT ILLNESS: Patient is status post bedside I&D with Dr. Joshi of scalp abscess. Patient reports pain is controlled. Denies any nausea or vomiting. Afebrile. WBC yesterday 11.2 cultures pending PHYSICAL EXAM: VITAL SIGNS: Reviewed. GENERAL: Well-developed in no acute distress. HEENT: Head bandage clean dry and intact ABDOMEN: Soft. Nondistended. Nontender. NEUROLOGIC: Alert and oriented. Cranial nerves II through XII grossly intact. ASSESSMENT: 1. Scalp abscess status post incision and drainage PLAN: -Patient can be discharged from surgical standpoint when medically cleared -Antibiotics per infectious disease -Patient can shower Physician Animation Producer note has been reviewed by physician. Signing provider agrees with the documented findings, assessment, and plan of care. Objective - Vital Signs Vital signs: Vital Signs Temp 97.7 F 09/23/22 07:07 Pulse 87 09/23/22 07:07 Resp 18 09/23/22 07:07 BP 125/79 09/23/22 07:07 Pulse Ox 100 09/23/22 07:07 FiO2 Intake & Output 09/22/22 09/23/22 09/23/22 18:59 06:59 18:59 Intake Total 240 Balance 240 Intake: Oral 240 Other: # Voids 2 2 - Labs CBC & Chem 7: 09/22/22 04:13 09/22/22 04:13 Labs: Abnormal Lab Results - Last 24 Hours (Table) 09/22/22 Range/Units 04:13 Iron 8 L (65-175) UG/DL % Saturation 2.48 L (15.00-50.00)
[2022-09-23 09:05] LABS: Basophils # (A) 0.05 X 10*3/uL (0.00-0.10); Basophils % (A) 0.7 %; Eosinophils % (A) 1.3 %; HCT 22.9 % (39.6-50.0); HGB 6.6 d/dL (12.0-15.0); Lymphocytes # (A) 1.38 X 10*3/uL (0.90-5.00); Lymphocytes % (A) 18.4 %; MCH 22.4 pg (27.0-32.0); MCHC 28.8 d/dL (32.0-37.0); MCV 77.9 FL (80.0-97.0); Mean Platelet Volume 11.7 FL (9.5-12.2); Monocytes # (A) 0.98 X 10*3/uL (0.20-1.00); NRBC Per 100 WBC 0 X 10*3/uL (0.00-0.01); Neutrophils # (A) 4.98 X 10*3/uL (1.80-7.70); Neutrophils % (A) 66.3 %; Platelet Count 344 X 10*3/uL (140-440); RBC 2.94 X 10*6/uL (4.40-5.60); RDW 14.6 % (11.5-14.5); WBC 7.51 X 10*3/uL (4.50-10.00)
[2022-09-23] MEDS: FAMOTIDINE 20 MG TAB PO SCH ×2 (09:11→20:34)
[2022-09-23 10:56] LABS: Erythrocyte Sedimentation Rate 28 mm/Hr (0-15)
[2022-09-23] MEDS ORDERED: VANCOMYCIN TROUGH DUE 1 EACH MISC MISCELLANE ONE (13:00)
[2022-09-23 17:56] LABS: Basophils % (A) 0 %; Eosinophils # (A) 0.1 k/uL (0-0.7); Eosinophils % (A) 2 %; HCT 24.9 % (39.0-53.0); HGB 7.7 gm/dL (13.0-17.5); Hypochromasia Marked; Lymphocytes # (A) 1.2 k/uL (1.0-4.8); Lymphocytes % (A) 15 %; MCH 23.8 pg (25.0-35.0); MCHC 31.2 g/dL (31.0-37.0); MCV 76.5 fL (80.0-100.0); Microcytosis Slight; Monocytes # (A) 0.6 k/uL (0-1.0); Monocytes % (A) 8 %; Neutrophils % (A) 73 %; Platelet Count 342 k/uL (150-450); Poikilocytosis Slight; RBC 3.25 m/uL (4.30-5.90); RDW 14.8 % (11.5-15.5); WBC 8.2 k/uL (3.8-10.6)
[2022-09-23] MEDS ORDERED: VANCOMYCIN 1,250 MG in SODIUM CHLORIDE 0.9% 250 ML IVPB SCH (18:00)
[2022-09-23] MEDS ORDERED: ACETAMINOPHEN TAB 325 MG TAB PO PRN (21:25)
--- NOTE | 2022-09-23 21:38 | P.PN ---
Subjective Progress Note Date: 09/23/22 31-year-old the male came in the with possible cellulitis on his scalp with failure of outpatient treatment as patient was recently on antibiotics from an urgent care. Patient has Abscess which drained general surgery was consulted infectious disease was consulted patient was started on vancomycin IV patient is ALLERGIC to cephalosporins. Patient does have leukocytosis tachycardia without any fever patient is also anemic but no evidence of acute the upper or lower GI bleed clinically. Iron panel and ferritin levels were obtained and results are pending 09/23/2022 Patient is seen and evaluated in follow-up today currently maintained on IV antibiotics with infectious disease following. Scalp is bandaged up and dressing is currently dry and intact as patient underwent bedside incision and d rainage with general surgery yesterday. Patient was noted to have lowered hemoglobin this morning of 6.6 and iron studies do appear to be low and patient reports of no history of anemia. On exam patient is also reporting he noticed some bright red blood in the stool and has had multiple episodes of loose stools since being here. Patient reports he has followed with GI in the outpatient setting in the past as he has occasionally had bowel irregularities and previous episodes of bloody stools. Patient underwent colonoscopy in 2020 and biopsies were obtained and negative other than internal hemorrhoid was noted. 1 unit of PRBCs is ordered and will follow-up with repeat hemoglobin in the evening. Discussed with the patient at length if continuing to have more frequent bloody bowel movements to notify nursing staff. General surgery is following and will reconsult as needed. Patient denies any black or tarry stools at this time. Patient denies abdominal pain and is tolerating diet. Will follow up with repeat labs in the a.m. Currently awaiting finalized cultures to determine dis charge antibiotics. Review of systems: Constitutional: No reports of fatigue, fever, or chills Cardiovascular: No reports of chest pain or palpitations Respiratory: No reports of shortness of breath or cough GI: No reports of nausea, vomiting, , reports multiple loose stools with blood in them bright red : No reports of dysuria or retention Neurovascular: No reports of weakness or numbness All medications have been reviewed PHYSICAL EXAMINATION: GENERAL: The patient is alert and oriented x3, not in any acute distress. Well developed, well nourished. Thin build. HEENT: Pupils are round and equally reacting to light. EOMI. No scleral icterus. No conjunctival pallor. Normocephalic, atraumatic. No pharyngeal erythema. No thyromegaly. CARDIOVASCULAR: S1 and S2 present. No murmurs, rubs, or gallops. PULMONARY: Chest is clear to auscultation, no wheezing or crackles. ABDOMEN: Soft, nontender, nondistended, normoactive bowel sounds. No palpable organomegaly. MUSCULOSKELETAL: No joint swelling or deformity. EXTREMITIES: No cyanosis, clubbing, or pedal edema. NEUROLOGICAL: Gross neurological examination did not reveal any focal deficits. SKIN: 3 to 5 cm abscess on the scalp status post debridement and surgical dressing is dry and intact Assessment: -Scalp abscess: Status post bedside incision and drainage and awaiting finalized cultures -Bright red blood noted in stools, most likely internal hemorrhoid exacerbated by multiple episodes of diarrhea -Alopecia secondary to above -Anemia most probably iron deficiency anemia. Denied any family history of thalassemia -Past history of bowel irregularities with internal hemorrhoid noted on colonoscopy in 2020 -DVT prophylaxis: Early ambulation -GI prophylaxis -Full code Plan: Recommend continue with antibiotics with infectious disease following along with general surgery and patient is status post I&D at the bedside and awaiting finalized cultures. Patient will need outpatient follow-up with GI as well as dermatology Hemoglobin was noted to be 6.6 today and will give a unit of PRBCs and follow-up with repeat labs in the evening as well as in the a.m. Recommend transfusing of 7 or less Iron studies noted to be low and will give 2 doses of IV iron. Recommend hematology consult outpatient Encouraged increased activity as tolerated Will discuss further with infectious disease once finalized cultures are o btained. Cultures initially presenting with no growth at this time The impression and plan of care has been dictated by Emily Crain Nurse Practitioner as directed. Dr. Luz MD I have performed a history and examination and MDM of this patient, discussed the same with the dictator, and agree with the dictator's assessment and plan as written ,documented as a scribe. Based on total visit time, I have performed more than 50% of the visit. Objective - Vital Signs Vital signs: Vital Signs Temp 97.7 F 09/23/22 07:07 Pulse 87 09/23/22 07:07 Resp 18 09/23/22 07:07 BP 125/79 09/23/22 07:07 Pulse Ox 100 09/23/22 07:07 FiO2 Intake & Output 09/22/22 09/23/22 09/23/22 18:59 06:59 18:59 Intake Total 240 Balance 240 Intake: Oral 240 Other: # Voids 2 2 - Labs CBC & Chem 7: 09/23/22 17:36 09/23/22 05:23 Labs: Abnormal Lab Results - Last 24 Hours (Table) 09/22/22 09/23/22 09/23/22 Range/Units 04:13 05:23 05:23 RBC 2.94 L (4.40-5.60) X 10*6/uL Hgb 6.6 H* (12.0-15.0) d/dL Hct 22.9 L (39.6-50.0) % MCV 77.9 L (80.0-97.0) FL MCH 22.4 L (27.0-32.0) pg MCHC 28.8 L (32.0-37.0) d/dL RDW 14.6 H (11.5-14.5) % Sodium 134 L (135-145) mmol/L BUN 8.6 L (9.0-27.0) mg/dL BUN/Creatinine Ratio 8.60 L (12.00-20.00) Ratio Calcium 8.2 L (8.7-10.3) mg/dL Iron 8 L (65-175) UG/DL % Saturation 2.48 L (15.00-50.00) Total Bilirubin <0.2 L (0.3-1.2) mg/dL ALT 9 L (10-49) U/L Alkaline Phosphatase 40 L (41-126) U/L C-Reactive Protein 4.30 H (0.00-0.80) mg/dL Total Protein 5.4 L (6.2-8.2) d/dL Albumin 2.7 L (3.8-4.9) d/dL Albumin/Globulin Ratio 1.00 L (1.60-3.17) Ratio Microbiology - Last 24 Hours (Table) 09/22/22 12:38 Gram Stain - Preliminary Head
--- NOTE | 2022-09-23 22:43 | P.PN ---
Subjective Progress Note Date: 09/23/22 Principal diagnosis: Scalp abscess Patient is a 31-year-old male Who recently did have a problem with folliculitis involving the scalp area for the patient has been treated with oral doxycycline with the patient has recently completed afterwards the patient noticed to having a increasing pain and swelling to the left side of his scalp , CT was negative for any bony abnormality to the skull the patient is s/p surgical drainage of the abscess and cultures are pending. On today's evaluation that is 09/23/2022, the patient denies having any fever or any chills, pain to the scalp area is currently controlled. Denies any nausea vomiting abdominal pain or diarrhea Objective - Vital Signs Vital signs: Vital Signs Temp 97.7 F 09/23/22 07:07 Pulse 87 09/23/22 07:07 Resp 18 09/23/22 07:07 BP 125/79 09/23/22 07:07 Pulse Ox 100 09/23/22 07:07 FiO2 Intake & Output 09/22/22 09/23/22 09/23/22 18:59 06:59 18:59 Intake Total 240 Balance 240 Intake: Oral 240 Other: Voiding Method Toilet # Voids 2 2 - Exam GENERAL DESCRIPTION: Middle aged male lying in bed in no distress RESPIRATORY SYSTEM: Unlabored breathing , decreased breath sounds at bases HEART: S1 S2 regular rate and rhythm ,no loud murmurs ABDOMEN: Soft , no tenderness Left side of head wound is dressed , no drainage on the dressing - Labs CBC & Chem 7: 09/23/22 17:36 09/23/22 05:23 Labs: Abnormal Lab Results - Last 24 Hours (Table) 09/22/22 09/23/22 09/23/22 Range/Units 04:13 05:23 05:23 RBC 2.94 L (4.40-5.60) X 10*6/uL Hgb 6.6 H* (12.0-15.0) d/dL Hct 22.9 L (39.6-50.0) % MCV 77.9 L (80.0-97.0) FL MCH 22.4 L (27.0-32.0) pg MCHC 28.8 L (32.0-37.0) d/dL RDW 14.6 H (11.5-14.5) % ESR 28 H (0-15) mm/Hr Sodium 134 L (135-145) mmol/L BUN 8.6 L (9.0-27.0) mg/dL BUN/Creatinine Ratio 8.60 L (12.00-20.00) Ratio Calcium 8.2 L (8.7-10.3) mg/dL Iron 8 L (65-175) UG/DL % Saturation 2.48 L (15.00-50.00) Total Bilirubin <0.2 L (0.3-1.2) mg/dL ALT 9 L (10-49) U/L Alkaline Phosphatase 40 L (41-126) U/L C-Reactive Protein 4.30 H (0.00-0.80) mg/dL Total Protein 5.4 L (6.2-8.2) d/dL Albumin 2.7 L (3.8-4.9) d/dL Albumin/Globulin Ratio 1.00 L (1.60-3.17) Ratio Crossmatch 09/23/22 Range/Units 09:26 RBC (4.40-5.60) X 10*6/uL Hgb (12.0-15.0) d/dL Hct (39.6-50.0) % MCV (80.0-97.0) FL MCH (27.0-32.0) pg MCHC (32.0-37.0) d/dL RDW (11.5-14.5) % ESR (0-15) mm/Hr Sodium (135-145) mmol/L BUN (9.0-27.0) mg/dL BUN/Creatinine Ratio (12.00-20.00) Ratio Calcium (8.7-10.3) mg/dL Iron (65-175) UG/DL % Saturation (15.00-50.00) Total Bilirubin (0.3-1.2) mg/dL ALT (10-49) U/L Alkaline Phosphatase (41-126) U/L C-Reactive Protein (0.00-0.80) mg/dL Total Protein (6.2-8.2) d/dL Albumin (3.8-4.9) d/dL Albumin/Globulin Ratio (1.60-3.17) Ratio Crossmatch See Detail Microbiology - Last 24 Hours (Table) 09/22/22 12:38 Gram Stain - Preliminary Head Assessment and Plan (1) Scalp abscess Current Visit: Yes Status: Acute Code(s): L02.811 - CUTANEOUS ABSCESS OF HEAD [ANY PART, EXCEPT FACE] SNOMED Code(s): 30789031 Plan: 1patient was in the hospital with sepsis in this patient who did have a e levated white count tachycardia source is scalp abscess and concern for possible deep infection as the patient's symptom has been going on for more than a month recently completed course of oral doxycycline, CT of the head did not show any cortical erosion likely pathogen will be Staph aureus 2-patient with a cephalosporin allergy that will limit the number of antibiotics safe to use 3-Patient is s/p drainage and cultures are currently pending. 4we will continue patient on vancomycin pharmacy to dose while waiting for the culture to finalize and monitor clinical course closely Time with Patient: Less than 30
[2022-09-24] MEDS: VANCOMYCIN 1,250 MG in SODIUM CHLORIDE 0.9% 250 ML IVPB SCH (02:41)
[2022-09-24] MEDS: SODIUM CHLORIDE 0.9% 1,000 ML IV SCH (06:32)
[2022-09-24 07:07] LABS: African American GFR (CKD) >90 (>60 ml/min/1.73 sqM); Anion Gap 3 mmol/L; Blood Urea Nitrogen 4 mg/dL (9-20); Calcium 7.7 mg/dL (8.4-10.2); Carbon Dioxide 25 mmol/L (22-30); Chloride 108 mmol/L (98-107); Glucose 101 mg/dL (74-99); Magnesium 2.1 mg/dL (1.6-2.3); Non-African American GFR(CKD) >90 (>60 ml/min/1.73 sqM); Potassium 4.3 mmol/L (3.5-5.1); Sodium 136 mmol/L (137-145)
[2022-09-24 08:15] VITALS: TEMP 98.1
[2022-09-24] MEDS: FAMOTIDINE 20 MG TAB PO SCH (08:27)
[2022-09-24] MEDS ORDERED: SODIUM FERRIC GLUCONAT-SUCROSE 125 MG in SODIUM CHLORIDE 0.9% 100 ML IVPB SCH (09:00)
[2022-09-24 09:26] LABS: Basophils # (A) 0.07 X 10*3/uL (0.00-0.10); Basophils % (A) 1.1 %; Eosinophils # (A) 0.28 X 10*3/uL (0.04-0.35); Eosinophils % (A) 4.2 %; HCT 24.3 % (39.6-50.0); HGB 7.3 d/dL (12.0-15.0); Lymphocytes # (A) 1.44 X 10*3/uL (0.90-5.00); Lymphocytes % (A) 21.6 %; MCH 23.2 pg (27.0-32.0); MCV 77.4 FL (80.0-97.0); Mean Platelet Volume 11.2 FL (9.5-12.2); Monocytes # (A) 0.87 X 10*3/uL (0.20-1.00); Monocytes % (A) 13.1 %; NRBC Per 100 WBC 0 X 10*3/uL (0.00-0.01); Neutrophils # (A) 3.98 X 10*3/uL (1.80-7.70); Neutrophils % (A) 59.7 %; Platelet Count 342 X 10*3/uL (140-440); RBC 3.14 X 10*6/uL (4.40-5.60); RDW 15.1 % (11.5-14.5); WBC 6.66 X 10*3/uL (4.50-10.00)
[2022-09-24] MEDS ORDERED: VANCOMYCIN 1,250 MG in SODIUM CHLORIDE 0.9% 250 ML IVPB SCH (10:00)
--- NOTE | 2022-09-24 11:18 | P.PN ---
Subjective Progress Note Date: 09/24/22 Principal diagnosis: Scalp abscess Patient doing well today. Says his pain is improved. White blood cell count 6.6. He would like to go home. Objective - Vital Signs Vital signs: Vital Signs Temp 98.1 F 09/24/22 07:00 Pulse 73 09/24/22 08:00 Resp 16 09/24/22 08:00 BP 125/72 09/24/22 07:00 Pulse Ox 100 09/24/22 07:00 FiO2 Intake & Output 09/23/22 09/24/22 09/24/22 18:59 06:59 18:59 Intake Total 615 118 Balance 615 118 Intake: Oral 305 118 Blood Product 310 Rc As-1 Unit 310 [id number] Other: Voiding Method Toilet Toilet Toilet # Voids 1 2 # Bowel Movements 1 1 - Exam Scalp wound clean, mild tenderness, minimal drainage - Labs CBC & Chem 7: 09/24/22 06:38 09/24/22 06:38 Labs: Abnormal Lab Results - Last 24 Hours (Table) 09/23/22 09/23/22 09/24/22 Range/Units 09:26 17:36 06:38 RBC 3.25 L (4.30-5.90) m/uL Hgb 7.7 L (13.0-17.5) gm/dL Hct 24.9 L (39.0-53.0) % MCV 76.5 L (80.0-100.0) fL MCH 23.8 L (25.0-35.0) pg MCHC (32.0-37.0) d/dL RDW (11.5-14.5) % Sodium 136 L (137-145) mmol/L Chloride 108 H (98-107) mmol/L BUN 4 L (9-20) mg/dL Glucose 101 H (74-99) mg/dL Calcium 7.7 L (8.4-10.2) mg/dL Crossmatch See Detail 09/24/22 Range/Units 06:38 RBC 3.14 L (4.30-5.90) m/uL Hgb 7.3 L (13.0-17.5) gm/dL Hct 24.3 L (39.0-53.0) % MCV 77.4 L (80.0-100.0) fL MCH 23.2 L (25.0-35.0) pg MCHC 30.0 L (32.0-37.0) d/dL RDW 15.1 H (11.5-14.5) % Sodium (137-145) mmol/L Chloride (98-107) mmol/L BUN (9-20) mg/dL Glucose (74-99) mg/dL Calcium (8.4-10.2) mg/dL Crossmatch Microbiology - Last 24 Hours (Table) 09/22/22 13:45 Blood Culture - Preliminary Blood 09/22/22 12:38 Gram Stain - Preliminary Head Wound Culture - Preliminary Assessment and Plan (1) Scalp abscess Narrative/Plan: 31-year-old male with scalp abscess. Doing well after incision and drainage. May discharge from our standpoint. Current Visit: Yes Status: Acute Code(s): L02.811 - CUTANEOUS ABSCESS OF HEAD [ANY PART, EXCEPT FACE] SNOMED Code(s): 17573357
[2022-09-24 14:38] VITALS: BP 137/81; PULSE 98; RESP 15
--- NOTE | 2022-09-24 15:34 | P.PN ---
Subjective Progress Note Date: 09/24/22 Principal diagnosis: Scalp abscess Patient is a 31-year-old male Who recently did have a problem with folliculitis involving the scalp area for the patient has been treated with oral doxycycline with the patient has recently completed afterwards the patient noticed to having a increasing pain and swelling to the left side of his scalp , CT was negative for any bony abnormality to the skull the patient is s/p surgical drainage of the abscess and cultures are pending. On today's evaluation that is 09/24/2022 , the patient remains to be afebrile, the patient pain to the scalp wound has decreased in intensity, the patient Denies any nausea vomiting abdominal pain or diarrhea Objective - Vital Signs Vital signs: Vital Signs Temp 98.1 F 09/24/22 07:00 Pulse 73 09/24/22 08:00 Resp 16 09/24/22 08:00 BP 125/72 09/24/22 07:00 Pulse Ox 100 09/24/22 07:00 FiO2 Intake & Output 09/23/22 09/24/22 09/24/22 18:59 06:59 18:59 Intake Total 615 118 Balance 615 118 Intake: Oral 305 118 Blood Product 310 Rc As-1 Unit 310 [id number] Other: Voiding Method Toilet Toilet Toilet # Voids 1 2 # Bowel Movements 1 1 - Exam GENERAL DESCRIPTION: Middle aged male lying in bed in no distress RESPIRATORY SYSTEM: Unlabored breathing , decreased breath sounds at bases HEART: S1 S2 regular rate and rhythm ,no loud murmurs ABDOMEN: Soft , no tenderness Left side of head wound base with no slough tissue, no drainage or redness - Labs CBC & Chem 7: 09/24/22 06:38 09/24/22 06:38 Labs: Abnormal Lab Results - Last 24 Hours (Table) 09/23/22 09/23/22 09/24/22 Range/Units 09:26 17:36 06:38 RBC 3.25 L (4.30-5.90) m/uL Hgb 7.7 L (13.0-17.5) gm/dL Hct 24.9 L (39.0-53.0) % MCV 76.5 L (80.0-100.0) fL MCH 23.8 L (25.0-35.0) pg MCHC (32.0-37.0) d/dL RDW (11.5-14.5) % Sodium 136 L (137-145) mmol/L Chloride 108 H (98-107) mmol/L BUN 4 L (9-20) mg/dL Glucose 101 H (74-99) mg/dL Calcium 7.7 L (8.4-10.2) mg/dL Crossmatch See Detail 09/24/22 Range/Units 06:38 RBC 3.14 L (4.30-5.90) m/uL Hgb 7.3 L (13.0-17.5) gm/dL Hct 24.3 L (39.0-53.0) % MCV 77.4 L (80.0-100.0) fL MCH 23.2 L (25.0-35.0) pg MCHC 30.0 L (32.0-37.0) d/dL RDW 15.1 H (11.5-14.5) % Sodium (137-145) mmol/L Chloride (98-107) mmol/L BUN (9-20) mg/dL Glucose (74-99) mg/dL Calcium (8.4-10.2) mg/dL Crossmatch Microbiology - Last 24 Hours (Table) 09/22/22 13:45 Blood Culture - Preliminary Blood 09/22/22 12:38 Gram Stain - Preliminary Head Wound Culture - Preliminary Assessment and Plan (1) Scalp abscess Current Visit: Yes Status: Acute Code(s): L02.811 - CUTANEOUS ABSCESS OF HEAD [ANY PART, EXCEPT FACE] SNOMED Code(s): 80935773 Plan: 1patient was in the hospital with sepsis in this patient who did have a elevated white count tachycardia source is scalp abscess and concern for possible deep infection as the patient's symptom has been going on for more than a month recently completed course of oral doxycycline, CT of the head did not show any cortical erosion likely pathogen will be Staph aureus 2-patient with a cephalosporin allergy that will limit the number of antibiotics safe to use 3-Patient is s/p drainage and cultures are currently pending. 4patient has been advised to continue with IV vancomycin while waiting for the culture finalized patient however has been insisting on going home may consider oral doxycycline admitting team BODYBUILDER to Follow-up on the culture and antibiotic adjusted if needed Time with Patient: Less than 30
[2022-09-25] MEDS ORDERED: VANCOMYCIN TROUGH DUE 1 EACH MISC MISCELLANE ONE (09:00)
--- NOTE | 2022-09-25 16:49 | P.DS ---
Providers Date of admission: 09/22/22 06:17 Attending physician: Jessica Isaac Consults: 09/22/22 12:40 Consult Physician Routine Consulting Provider: Fercho Thomas Consult Reason/Comments: abcess in head Do you want consulting provider notified?: Already Contacted 09/22/22 12:44 Consult Physician Routine Consulting Provider: Dilan Joshi Consult Reason/Comments: head abcess Do you want consulting provider notified?: Yes Primary care physician: Stated None Hospital Course: Final Diagnosis -Scalp abscess, left sided likely due to a folliculitis: Status post bedside incision and drainage cultures are negative so far -Bright red blood noted in stools, most likely internal hemorrhoid exacerbated by multiple episodes of diarrhea -Alopecia secondary to above -Anemia most probably iron deficiency anemia. Denied any family history of thalassemia -Past history of bowel irregularities with internal hemorrhoid noted on colonoscopy in 2020 Full Code Discharge Disposition Patient stable for discharge home to continue with current course of oral doxycycline 100 mg BID as previously recommended. Follow up with ID and general surgery on discharge. Recommend to discharge on oral iron supplement daily and follow up hemoglobin level. Recommending to see a hemetologist on discharge regarding the anemia and further work up. Hospital Course This is a 31-year-old the male came in the with possible cellulitis on his scalp with failure of outpatient treatment as patient was recently on antibiotics from an urgent care. Patient is noted to have an abscess on the scalp which he was admitted to the hospital and general surgery was consulted infectious disease was consulted. Patient underwent I and D of the abscess bedside and scalp bandage placed. Patient was started on vancomycin IV patient is ALLERGIC to cephalosporins. Patient does have leukocytosis tachycardia without any fever. His white count has improve down to 6.66. Patient is also anemic but no evidence of acute the upper or lower GI bleed clinically. Iron panel and ferritin levels were obtained which reveal iron level of 8 with normal TIBC although percent saturation is low. On exam patient is also reporting he noticed some bright red blood in the stool and has had multiple episodes of loose stools since being here. Patient reports he has followed with GI in the outpatient setting in the past as he has occasionally had bowel irregularities and previous episodes of bloody stools. Patient underwent colonoscopy in 2020 and biopsies were obtained and negative other than internal hemorrhoid was noted. 1 unit of PRBCs is ordered and will follow-up with repeat hemoglobin in the evening. Patient likely has internal hemorrhoids which are exacerbation by diarrhea. Diarrhea is likely from antibiotic use. Patient is requesting discharge home and surgical cultures are negative after 3 days. ID recommending to continue on the same course of oral doxycycline. Patient has no fever, no chest pain, no shortness of breath. Tolerating diet. Patient will be discharge home with the above mentioned recommendations. Please see medication reconciliation for a list of current medication. Thank you for allowing us to participate in the care of this patient. The impression and plan of care has been dictated by Whit Caro Nurse Practitioner as directed. Dr. Luz MD I have performed a history and physical examination and medical decision making of this patient, discussed the same with the dictator, and agree with the dictators assessment and plan as written, documented as a scribe. Based on total visit time, I have performed more than 50% of this visit. Patient Condition at Discharge: Good Plan - Discharge Summary Discharge Rx Participant: No New Discharge Prescriptions: New Famotidine [Pepcid] 20 mg PO BID #30 tab Ferrous Sulfate [Feosol] 325 mg PO DAILY #30 tab Docusate [Colace] 100 mg PO BID PRN #60 capsule PRN Reason: Constipation Continue Ibuprofen [Advil] 200 - 600 mg PO Q8H PRN PRN Reason: Pain Doxycycline Hyclate 100 mg PO BID Discharge Medication List Doxycycline Hyclate 100 mg PO BID 09/22/22 [History] Ibuprofen [Advil] 200 - 600 mg PO Q8H PRN 09/22/22 [History] Docusate [Colace] 100 mg PO BID PRN #60 capsule 09/24/22 [Rx] Famotidine [Pepcid] 20 mg PO BID #30 tab 09/24/22 [Rx] Ferrous Sulfate [Feosol] 325 mg PO DAILY #30 tab 09/24/22 [Rx] Follow up Appointment(s)/Referral(s): Bienvenido Bauer MD [STAFF PHYSICIAN] - 1-2 Days (please call for an appointment Monday ) None,Stated [Primary Care Provider] - 1-2 days (Please call monday for an appointment ) Fercho Thomas MD [STAFF PHYSICIAN] - 1 Week (please call for an appointment on Monday ) Dilan Joshi MD [STAFF PHYSICIAN] - 1 Week (please call monday for an appointment ) Ambulatory/Diagnostic Orders: Complete Blood Count w/diff [LAB.AMB] Time Frame: 3 Days, Location: None Selected Patient Instructions/Handouts: Iron Rich Diet (GEN), Alopecia (GEN), Folliculitis (GEN), Abscess (GEN), Anemia (GEN) Activity/Diet/Wound Care/Special Instructions: Recommend to continue on antibiotics as prior and follow up with infectious disease Dr. Thomas on discharge. Follow up with Dr. Joshi as well. Continue on oral iron supplement daily this can be constipation so recommend to continue on a bowel regiment while on Follow up with hematology regarding the anemia and follow up labs in 2 to 3 days Recommend to establish care with a primary care provider Discharge/Stand Alone Forms: Work/School Release / Restrict Discharge Disposition: HOME SELF-CARE
== END 2022-09-24 16:00 | disposition home or self-care (01) ==
LOC: EC 02:49 → 6NMEDSUR 06:17
PROVIDERS: ADMIT Hospitalist; ATTEND Hospitalist
DX: L02.811 Cutaneous abscess of head [any part, except face] (principal); D64.9 Anemia, unspecified; L73.9 Follicular disorder, unspecified; L65.9 Nonscarring hair loss, unspecified; R00.0 Tachycardia, unspecified; K59.00 Constipation, unspecified; R19.7 Diarrhea, unspecified; Z88.1 Allergy status to other antibiotic agents; Z79.899 Other long term (current) drug therapy; Z88.8 Allergy status to other drugs, medicaments and biological substances
CPT/HCPCS: 36430; 96361 ×2; 96365; 96366 ×3; 96367; 96375; 99285; 36415; 86900; 86901; 80053 ×2; 80048; 85652; 83540; 83550; 83735 ×2; 84100; 85025 ×3; 80202; 85610; 85730; 86850; 86920; 86140; 82272; 87040; 87070; 87205; 70460; 10060; G0378 ×3; P9016; J3370 ×3; J2270; J1100; J2916; J1885; Q9967

== ENCOUNTER → 2022-09-26 | Outpatient (CLI) | payer BC ==
[2022-09-26 18:13] LABS: Basophils # (A) 0.08 X 10*3/uL (0.00-0.10); Basophils % (A) 0.7 %; Eosinophils # (A) 0.55 X 10*3/uL (0.04-0.35); Eosinophils % (A) 5.1 %; HCT 27.7 % (39.6-50.0); HGB 8.1 d/dL (12.0-15.0); Lymphocytes % (A) 12.2 %; MCHC 29.2 d/dL (32.0-37.0); MCV 78.7 FL (80.0-97.0); Mean Platelet Volume 11.6 FL (9.5-12.2); Monocytes # (A) 1.05 X 10*3/uL (0.20-1.00); Monocytes % (A) 9.8 %; NRBC Per 100 WBC 0 X 10*3/uL (0.00-0.01); Neutrophils # (A) 7.66 X 10*3/uL (1.80-7.70); Neutrophils % (A) 71.7 %; Platelet Count 480 X 10*3/uL (140-440); RBC 3.52 X 10*6/uL (4.40-5.60); RDW 15.1 % (11.5-14.5); WBC 10.69 X 10*3/uL (4.50-10.00)
== END | disposition home or self-care (01) ==
LOC: LABWHC1 08:26
PROVIDERS: ATTEND Nurse Practitioner Family
DX: D50.9 Iron deficiency anemia, unspecified (principal)
CPT/HCPCS: 36415; 85025

== ENCOUNTER 2022-10-09 17:33 | Observation (INO) | payer BC ==
--- NOTE | 2022-10-09 18:26 | ED ---
General Adult HPI - General Chief complaint: GI Bleed Stated complaint: GI Problems Time Seen by Provider: 10/09/22 18:03 Source: patient Mode of arrival: ambulatory Limitations: no limitations - History of Present Illness Initial comments: 31-year-old male with a past medical history significant for anemia presents to the ED with a chief complaint of lightheadedness. Patient states was previously seen here on 09/24/22 due to an abscess on his scalp. At that time was also noted to be anemia and was given 1 unit of packed red blood cells. Patient s tates that since his discharge has had ongoing issues with fatigue and lightheadedness, worsening in severity. Patient also notes has history of bright red blood in the stools. Had prior colonoscopy showing internal hemorrhoids, no other findings. States since his discharge he has been having more frequent episodes of blood in the stool. States that he sometimes intermittently only sees minimal amounts of blood but sometimes has large amounts of bright red blood in the toilet bowl. Denies chest pain or shortness of breath. Denies abdominal pain. Denies nausea or vomiting. No other comp laints. - Related Data Home Medications Medication Instructions Recorded Confirmed Doxycycline Hyclate 100 mg PO BID 09/22/22 09/22/22 Ibuprofen [Advil] 200 - 600 mg PO Q8H PRN 09/22/22 09/22/22 Previous Rx's Medication Instructions Recorded Docusate [Colace] 100 mg PO BID PRN #60 capsule 09/24/22 Famotidine [Pepcid] 20 mg PO BID #30 tab 09/24/22 Ferrous Sulfate [Feosol] 325 mg PO DAILY #30 tab 09/24/22 Allergies Allergy/AdvReac Type Severity Reaction Status Date / Time cefuroxime [From Ceftin] AdvReac Diarrhea Verified 10/09/22 17:45 Review of Systems ROS Statement: Those systems with pertinent positive or pertinent negative responses have been documented in the HPI. ROS Other: All systems not noted in ROS Statement are negative. Past Medical History Past Medical History: Skin Disorder Additional Past Medical History / Comment(s): acne, constipation, blood in stool. History of Any Multi-Drug Resistant Organisms: None Reported Past Surgical History: Orthopedic Surgery Additional Past Surgical History / Comment(s): cyst on back removedd, arthroscopy knee. Past Anesthesia/Blood Transfusion Reactions: No Reported Reaction Past Psychological History: No Psychological Hx Reported Smoking Status: Never smoker Past Alcohol Use History: Occasional Past Drug Use History: None Reported - Past Family History Mother Family Medical History: No Reported History General Exam Limitations: no limitations General appearance: alert, in no apparent distress Head exam: Present: atraumatic, normocephalic Eye exam: Present: normal appearance Respiratory exam: Present: normal lung sounds bilaterally Cardiovascular Exam: Present: normal rhythm, tachycardia GI/Abdominal exam: Present: soft (No Tenderness to palpation. No rebound guarding or rigidity.) Rectal exam: Present: normal rectal tone Neurological exam: Present: alert, oriented X3 Psychiatric exam: Present: normal affect, normal mood Skin exam: Present: warm, dry, pallor Course Vital Signs 10/09/22 10/09/22 17:42 18:22 Temperature 98.5 F Pulse Rate 103 H 92 Respiratory 18 18 Rate Blood Pressure 137/87 139/92 O2 Sat by Pulse 103 H 100 Oximetry Medical Decision Making - Medical Decision Making Was pt. sent in by a medical professional or institution ([facility]IL Levine, [facility] [employer], urgent care, hospital, or halfway...) When possible be specific @ -No Did you speak to anyone other than the patient for history (EMS, parent, family, police, friend...)? What history was obtained from this source @ -No Did you review nursing and triage notes (agree or disagree)? Why? @ -I reviewed and agree with nursing and triage notes Were old charts reviewed (outside hosp., previous admission, EMS record, old EKG, old radiological studies, urgent care reports/EKG's, halfway records)? Report findings @ -Reviewed prior visit. Pertinent history included in HPI. Please see HPI for further details. Differential Diagnosis (chest pain, altered mental status, abdominal pain women, abdominal pain men, vaginal bleeding, weakness, fever, dyspnea, syncope, headache, dizziness, GI bleed, back pain, seizure, CVA, palpatations, mental health, musculoskeletal)? @ -Differential Dizziness: Benign paroxysmal positional Vertigo, Menieres disease, otitis media, acoustic neuroma, vertebrobasilar insufficiency, cerebellar stroke, encephalitis, hypovolemic, arrhythmia, coronary artery syndrome, anemia, this is not meant to be an all-inclusive list EKG interpreted by me (3pts min.). @ -As above X-rays interpreted by me (1pt min.). @ -None done CT interpreted by me (1pt min.). @ -None done U/S interpreted by me (1pt. min.). @ -None done What testing was considered but not performed or refused? (CT, X-rays, U/S, labs)? Why? @ -None What meds were considered but not given or refused? Why? @ -None Did you discuss the management of the patient with other professionals (professionals i.e. , PA, [employer]ER, lab, RT, psych nurse, dialysis social worker, middle school math teacher, teacher, state patrol officer, ed case manager)? Give summary @ -Discussed with Whit SLOAN, who accepted admission to Dr. Anguiano Was smoking cessation discussed for >3mins.? @ -No Was critical care preformed (if so, how long)? @ -No Were there social determinants of health that impacted care today? How? (Homelessness, low income, unemployed, alcoholism, drug addiction, transportation, low edu. Level, literacy, decrease access to med. care, custodial, rehab)? @ -No Was there de-escalation of care discussed even if they declined (Discuss DNR or withdrawal of care, Hospice)? DNR status @ -No What co-morbidities impacted this encounter? (DM, HTN, Smoking, COPD, CAD, Cancer, CVA, ARF, Chemo, Hep., AIDS, mental health diagnosis, sleep apnea, morbid obesity)? @ -None Was patient admitted / discharged? Hospital course, mention meds given and r oute, prescriptions, significant lab abnormalities, going to OR and other pertinent info. @ -Admission. Laboratory studies significant for hemoglobin of 8.3, actually improved from prior visit at 8.1. Stool occult blood positive. Otherwise laboratory studies unremarkable. Patient will be admitted due to symptomatic anemia and recurrent bleeding with consult to gastroenterology. Discussed plan of care with patient who is in agreement. Undiagnosed new problem with uncertain prognosis? @ -No Drug Therapy requiring intensive monitoring for toxicity (Heparin, Nitro, Insulin, Cardizem)? @ -No Were any procedures done? @ -No Diagnosis/symptom? @ -Symptomatic anemia, recurrent GI bleeding Acute, or Chronic, or Acute on Chronic? @ -Acute on chronic Uncomplicated (without systemic symptoms) or Complicated (systemic symptoms)? @ -Complicated, tachycardia. Side effects of treatment? @ -No Exacerbation, Progression, or Severe Exacerbation? @ -No Poses a threat to life or bodily function? How? (Chest pain, [place], [place], pneumonia, PE, COPD, DKA, ARF, appy, cholecystitis, CVA, Diverticulitis, Homicidal, Suicidal, threat to staff... and all critical care pts) @ -No - Lab Data Result diagrams: 10/09/22 18:19 10/09/22 18:19 Lab Results 10/09/22 10/09/22 10/09/22 Range/Units 18:19 18:19 18:19 WBC 6.1 (3.8-10.6) k/uL RBC 3.55 L (4.30-5.90) m/uL Hgb 8.3 L (13.0-17.5) gm/dL Hct 26.5 L (39.0-53.0) % MCV 74.7 L (80.0-100.0) fL MCH 23.5 L (25.0-35.0) pg MCHC 31.4 (31.0-37.0) g/dL RDW 15.4 (11.5-15.5) % Plt Count 449 (150-450) k/uL MPV 8.2 Neutrophils % 59 % Lymphocytes % 22 % Monocytes % 9 % Eosinophils % 7 % Basophils % 1 % Neutrophils # 3.5 (1.3-7.7) k/uL Lymphocytes # 1.3 (1.0-4.8) k/uL Monocytes # 0.5 (0-1.0) k/uL Eosinophils # 0.4 (0-0.7) k/uL Basophils # 0.1 (0-0.2) k/uL Hypochromasia Marked Microcytosis Slight PT 9.7 (9.0-12.0) sec INR 0.9 (<1.2) APTT 21.7 L (22.0-30.0) sec Sodium (137-145) mmol/L Potassium (3.5-5.1) mmol/L Chloride (98-107) mmol/L Carbon Dioxide (22-30) mmol/L Anion Gap mmol/L BUN (9-20) mg/dL Creatinine (0.66-1.25) mg/dL Est GFR (CKD-EPI)AfAm (>60 ml/min/1.73 sqM) Est GFR (CKD-EPI)NonAf (>60 ml/min/1.73 sqM) Glucose (74-99) mg/dL Plasma Lactic Acid Morgan (0.7-2.0) mmol/L Calcium (8.4-10.2) mg/dL Total Bilirubin (0.2-1.3) mg/dL AST (17-59) U/L ALT (4-49) U/L Alkaline Phosphatase (38-126) U/L Ammonia (<30) umol/L Troponin I (0.000-0.034) ng/mL Total Protein (6.3-8.2) g/dL Albumin (3.5-5.0) g/dL Lipase (23-300) U/L Stool Occult Blood Positive (Negative) Blood Type Blood Type Recheck Bld Type Recheck Status Antibody Screen Spec Expiration Date 10/09/22 10/09/22 10/09/22 Range/Units 18:19 18:19 18:19 WBC (3.8-10.6) k/uL RBC (4.30-5.90) m/uL Hgb (13.0-17.5) gm/dL Hct (39.0-53.0) % MCV (80.0-100.0) fL MCH (25.0-35.0) pg MCHC (31.0-37.0) g/dL RDW (11.5-15.5) % Plt Count (150-450) k/uL MPV Neutrophils % % Lymphocytes % % Monocytes % % Eosinophils % % Basophils % % Neutrophils # (1.3-7.7) k/uL Lymphocytes # (1.0-4.8) k/uL Monocytes # (0-1.0) k/uL Eosinophils # (0-0.7) k/uL Basophils # (0-0.2) k/uL Hypochromasia Microcytosis PT (9.0-12.0) sec INR (<1.2) APTT (22.0-30.0) sec Sodium 138 (137-145) mmol/L Potassium 3.9 (3.5-5.1) mmol/L Chloride 105 (98-107) mmol/L Carbon Dioxide 23 (22-30) mmol/L Anion Gap 10 mmol/L BUN 11 (9-20) mg/dL Creatinine 1.07 (0.66-1.25) mg/dL Est GFR (CKD-EPI)AfAm >90 (>60 ml/min/1.73 sqM) Est GFR (CKD-EPI)NonAf >90 (>60 ml/min/1.73 sqM) Glucose 105 H (74-99) mg/dL Plasma Lactic Acid Morgan 1.6 (0.7-2.0) mmol/L Calcium 8.9 (8.4-10.2) mg/dL Total Bilirubin 0.3 (0.2-1.3) mg/dL AST 27 (17-59) U/L ALT 19 (4-49) U/L Alkaline Phosphatase 40 (38-126) U/L Ammonia 15 (<30) umol/L Troponin I <0.012 (0.000-0.034) ng/mL Total Protein 6.5 (6.3-8.2) g/dL Albumin 3.3 L (3.5-5.0) g/dL Lipase 357 H (23-300) U/L Stool Occult Blood (Negative) Blood Type Blood Type Recheck Bld Type Recheck Status Antibody Screen Spec Expiration Date 10/09/22 Range/Units 18:19 WBC (3.8-10.6) k/uL RBC (4.30-5.90) m/uL Hgb (13.0-17.5) gm/dL Hct (39.0-53.0) % MCV (80.0-100.0) fL MCH (25.0-35.0) pg MCHC (31.0-37.0) g/dL RDW (11.5-15.5) % Plt Count (150-450) k/uL MPV Neutrophils % % Lymphocytes % % Monocytes % % Eosinophils % % Basophils % % Neutrophils # (1.3-7.7) k/uL Lymphocytes # (1.0-4.8) k/uL Monocytes # (0-1.0) k/uL Eosinophils # (0-0.7) k/uL Basophils # (0-0.2) k/uL Hypochromasia Microcytosis PT (9.0-12.0) sec INR (<1.2) APTT (22.0-30.0) sec Sodium (137-145) mmol/L Potassium (3.5-5.1) mmol/L Chloride (98-107) mmol/L Carbon Dioxide (22-30) mmol/L Anion Gap mmol/L BUN (9-20) mg/dL Creatinine (0.66-1.25) mg/dL Est GFR (CKD-EPI)AfAm (>60 ml/min/1.73 sqM) Est GFR (CKD-EPI)NonAf (>60 ml/min/1.73 sqM) Glucose (74-99) mg/dL Plasma Lactic Acid Morgan (0.7-2.0) mmol/L Calcium (8.4-10.2) mg/dL Total Bilirubin (0.2-1.3) mg/dL AST (17-59) U/L ALT (4-49) U/L Alkaline Phosphatase (38-126) U/L Ammonia (<30) umol/L Troponin I (0.000-0.034) ng/mL Total Protein (6.3-8.2) g/dL Albumin (3.5-5.0) g/dL Lipase (23-300) U/L Stool Occult Blood (Negative) Blood Type A Positive Blood Type Recheck A Pos Bld Type Recheck Status No Antibody Screen NEGATIVE Spec Expiration Date 10/12/20222318 - EKG Data EKG Comments: EKG shows a sinus rhythm at [address]-T wave changes, ND 160, QRS 84, QT/QTC 330/384. Disposition Clinical Impression: Anemia, Lower GI bleed Disposition: ADMITTED IP TO THIS [facility] Referrals: None,Stated [Primary Care Provider] - 1-2 days Time of Disposition: 20:17
[2022-10-09 18:36] LABS: Basophils # (A) 0.1 k/uL (0-0.2); Basophils % (A) 1 %; Eosinophils # (A) 0.4 k/uL (0-0.7); Eosinophils % (A) 7 %; HCT 26.5 % (39.0-53.0); HGB 8.3 gm/dL (13.0-17.5); Hypochromasia Marked; Lymphocytes # (A) 1.3 k/uL (1.0-4.8); Lymphocytes % (A) 22 %; MCH 23.5 pg (25.0-35.0); MCHC 31.4 g/dL (31.0-37.0); MCV 74.7 fL (80.0-100.0); Mean Platelet Volume 8.2; Microcytosis Slight; Monocytes # (A) 0.5 k/uL (0-1.0); Monocytes % (A) 9 %; Neutrophils # (A) 3.5 k/uL (1.3-7.7); Neutrophils % (A) 59 %; Platelet Count 449 k/uL (150-450); RBC 3.55 m/uL (4.30-5.90); RDW 15.4 % (11.5-15.5); WBC 6.1 k/uL (3.8-10.6)
[2022-10-09 18:45] LABS: INR 0.9 (<1.2); Prothrombin Time 9.7 sec (9.0-12.0)
[2022-10-09 18:53] LABS: Lactic Acid, Venous 1.6 mmol/L (0.7-2.0)
[2022-10-09 18:56] LABS: ALT 19 U/L (4-49); AST 27 U/L (17-59); African American GFR (CKD) >90 (>60 ml/min/1.73 sqM); Albumin 3.3 g/dL (3.5-5.0); Alkaline Phosphatase 40 U/L (38-126); Anion Gap 10 mmol/L; Blood Urea Nitrogen 11 mg/dL (9-20); Calcium 8.9 mg/dL (8.4-10.2); Carbon Dioxide 23 mmol/L (22-30); Chloride 105 mmol/L (98-107); Glucose 105 mg/dL (74-99); Lipase 357 U/L (23-300); Non-African American GFR(CKD) >90 (>60 ml/min/1.73 sqM); Potassium 3.9 mmol/L (3.5-5.1); Sodium 138 mmol/L (137-145); Total Bilirubin 0.3 mg/dL (0.2-1.3); Total Protein 6.5 g/dL (6.3-8.2)
[2022-10-09 19:14] LABS: Partial Thromboplastin Time 21.7 sec (22.0-30.0)
[2022-10-09] MEDS ORDERED: HYDROmorphone 1 MG/ML 1 ML SYRINGE IVP PRN (20:29)
[2022-10-09] MEDS ORDERED: IBUPROFEN 400 MG TAB PO PRN (20:29)
[2022-10-09] MEDS ORDERED: ACETAMINOPHEN TAB 325 MG TAB PO PRN (20:29)
[2022-10-09] MEDS ORDERED: NALOXONE 0.4 MG/ML 1 ML VIAL IV PRN (20:29)
[2022-10-09] MEDS ORDERED: ONDANSETRON 4 MG/2 ML VIAL IVP PRN (20:29)
[2022-10-09] MEDS ORDERED: HYDROmorphone 0.5 MG/0.5 ML SYRINGE IVP PRN (20:29)
[2022-10-09] MEDS: SODIUM CHLORIDE 0.9% 1,000 ML IV SCH (21:11)
[2022-10-10] MEDS: PANTOPRAZOLE 40 MG/10 ML VIAL IVP SCH ×2 (07:41→20:14)
[2022-10-10] MEDS: FERROUS SULFATE 325 MG TAB PO SCH ×2 (10:07→20:14)
[2022-10-10] MEDS: SODIUM CHLORIDE 0.9% 1,000 ML IV SCH ×2 (10:07→22:08)
[2022-10-10 11:55] LABS: Basophils # (A) 0.11 X 10*3/uL (0.00-0.10); Basophils % (A) 1.6 %; Eosinophils # (A) 0.58 X 10*3/uL (0.04-0.35); Eosinophils % (A) 8.3 %; HCT 23.4 % (39.6-50.0); Lymphocytes # (A) 1.42 X 10*3/uL (0.90-5.00); Lymphocytes % (A) 20.2 %; MCH 22.7 pg (27.0-32.0); MCHC 29.9 d/dL (32.0-37.0); MCV 75.7 FL (80.0-97.0); Monocytes # (A) 0.73 X 10*3/uL (0.20-1.00); Monocytes % (A) 10.4 %; NRBC Per 100 WBC 0 X 10*3/uL (0.00-0.01); Neutrophils # (A) 4.16 X 10*3/uL (1.80-7.70); Neutrophils % (A) 59.2 %; Platelet Count 437 X 10*3/uL (140-440); RBC 3.09 X 10*6/uL (4.40-5.60); RDW 15.1 % (11.5-14.5); WBC 7.02 X 10*3/uL (4.50-10.00)
[2022-10-10] MEDS ORDERED: PEG 3350 (236 GM/BTL) + LYTES 4,000 ML BOTTLE PO ONE (17:00)
--- NOTE | 2022-10-11 00:45 | CONS ---
CONSULTATION REQUESTING PHYSICIAN: None. REASON FOR CONSULTATION: Severe symptomatic microcytic hypochromic anemia. HISTORY OF PRESENT ILLNESS: The patient is a 31-year-old pleasant white male admitted to the hospital with fatigue, weakness, lightheadedness for the last 3 to 4 weeks duration. He was hospitalized about 2-1/2 weeks ago for some scalp lesion and at that time, which was on September 23, his hemoglobin was 6.6. He was given a unit of PRBC transfusion and was discharged home. Since then, the patient states that he has been having intermittent rectal bleeding almost on a daily basis. He has had about 3 to 4 bowel movements which are bloody in nature. Denies any abdominal pain. No nausea or vomiting. He had a colonoscopy by Dr. Becerra 3 years ago that was unremarkable. During this hospitalization, hemoglobin is 7 g/dL and MCV is 75, all consistent with iron deficiency anemia. PAST MEDICAL HISTORY: Unremarkable. PAST SURGICAL HISTORY: Unremarkable. MEDICATIONS: At home, Advil, Pepcid, Feosol. SOCIAL HISTORY: No smoking. No alcohol use. FAMILY HISTORY: Unremarkable. REVIEW OF SYSTEMS: CARDIOPULMONARY: No chest pain or shortness of breath. : No dysuria or hematuria. MUSCULOSKELETAL: Unremarkable. SKIN: Unremarkable. ENDOCRINE: Unremarkable. PSYCHIATRIC: Unremarkable. NEUROLOGY: Unremarkable. ENT/VISION: Unremarkable. CONSTITUTIONAL: No recent weight loss. No fever, chills, or night sweats. PAST SURGICAL HISTORY: Some kind of a knee arthroscopy and cyst on the back removed. PHYSICAL EXAMINATION: GENERAL: He appears comfortable. VITAL SIGNS: Afebrile. Blood pressure is 111/66, pulse rate 88. HEENT: Unremarkable. Conjunctivae pale. Sclerae anicteric. Oral cavity, no lesions. NECK: No JVD or lymph node enlargement. CHEST: Clear to auscultation. HEART: Regular rate and rhythm. ABDOMEN: Soft. Bowel sounds are positive. No organomegaly. EXTREMITIES: No pedal edema. SKIN: No rashes. NEUROLOGIC: Alert and oriented x3. No focal deficits. LABORATORY DATA: Labs done at the time of admission in the hospital, hemoglobin 7.7, MCV 74. WBC and platelets are within normal limits. Basic metabolic panel is within normal limits. IMPRESSION: Severe symptomatic microscopic hypochromic anemia consistent with iron deficiency anemia. The patient is complaining of intermittent rectal bleeding for the last 6 weeks duration. Hemoglobin 4 weeks ago was 6.6 requiring 2 units of PRBC transfusion. Last colonoscopy [address] Becerra was within normal limits. RECOMMENDATIONS: 1. Clear liquid diet. 2. Schedule for EGD and colonoscopy tomorrow. I discussed with the patient risks, benefits and complications of the procedure and he is agreeable to it. 3. Monitor CBC daily and transfuse if the hemoglobin is less than 7 g/dL. The plan was discussed with the patient. He is agreeable to it. Thank you for this consultation. MMKARENL / JONO: [id number] /
--- NOTE | 2022-10-11 01:24 | P.HPIM ---
History of Present Illness H&P Date: 10/10/22 Chief Complaint: Lightheadedness Patient is a 31-year-old male with known history of scalp lesion, acne presents to ER with complaints of lightheadedness. Patient was seen in the ER previously on 09/24/2022 due to abscess on his scalp. Patient was noted to have anemia at the time and was given 1 unit of PRBC. Since discharge patient has been having generalized weakness fatigue and lightheadedness and also noted to have bright red blood in the stools. Patient does have prior history of internal hemorrhoids. Denies any hematemesis. Denies any dark-colored stools. Patient has been having large amounts of bright red blood in the toilet bowl. Otherwise denies any fever or chills. No complaints of chest pain or shortness of breath. No complaints of abdominal pain. EKG showed sinus rhythm. Laboratory data showed WBC 6.1 hemoglobin 8.3 MCV 74.7 and platelets 449 Sodium 138 potassium 3.9 chloride 105 bicarb is 23 BUN 11 creatinine 1.07 and blood sugar is 105 and lipase level is 357. FOBT positive Review of Systems Constitutional: Patient denies any fever or chills . Generalized weakness and fatigue. Abdomen: Patient denied any nausea or vomiting or abd. pain Cardiovascular: Patient denies any chest pain or short of breath no pa lpitations. Respiratory: patient denied any cough . no sputum production. No shortness of breath Neurologic: Patient denied any numbness or tingling of headache. Patient does have lightheadedness.. Musculoskeletal: Patient denies any complaints of joint swelling or deformity. Skin: Negative Psychiatric: Negative Endocrine: No heat or cold intolerance. No recent weight gain. Genitourinary: No dysuria or hematuria. All other 14 point ROS negative except the above Past Medical History Past Medical History: Skin Disorder Additional Past Medical History / Comment(s): acne, constipation, blood in stool. History of Any Multi-Drug Resistant Organisms: None Reported Past Surgical History: Orthopedic Surgery Additional Past Surgical History / Comment(s): cyst on back removed, arthroscopy knee. Past Anesthesia/Blood Transfusion Reactions: No Reported Reaction Past Psychological History: No Psychological Hx Reported Smoking Status: Never smoker Past Alcohol Use History: Occasional Past Drug Use History: None Reported - Past Family History Mother Family Medical History: No Reported History Medications and Allergies Home Medications Medication Instructions Recorded Confirmed Type Famotidine [Pepcid] 20 mg PO BID PRN 10/09/22 10/09/22 History Ferrous Sulfate [Feosol] 325 mg PO BID 10/09/22 10/09/22 History Mupirocin 2% Oint [Bactroban 2% 1 applic TOPICAL TID 10/09/22 10/09/22 History Oint] Acetaminophen Tab [Tylenol] 650 mg PO Q6HR PRN tab 10/11/22 Rx predniSONE 0 mg PO DIRECTED #126 tab 10/11/22 Rx Allergies Allergy/AdvReac Type Severity Reaction Status Date / Time cefuroxime [From Ceftin] AdvReac Diarrhea Verified 10/09/22 20:53 Physical Exam Vitals: Vital Signs Temp Pulse Pulse Resp BP BP Pulse Ox 10/10/22 11:22 98.1 F 79 16 111/66 98 10/10/22 06:55 98.2 F 81 16 107/68 99 10/10/22 02:00 98.0 F 78 115/75 10/09/22 21:22 97.7 F 10/09/22 21:00 90 12 132/85 100 10/09/22 20:00 97 14 126/83 100 10/09/22 19:00 93 14 133/88 100 10/09/22 18:22 92 18 139/92 100 10/09/22 17:42 98.5 F 103 H 18 137/87 103 H Intake and Output 10/09/22 10/10/22 10/10/22 22:59 06:59 14:59 Intake Total 660 Balance 660 Intake: Intake, IV Titration 300 Amount Sodium Chloride 0.9% 1, 300 000 ml @ 75 mls/hr IV . [id number] [facility] Rx#:[id number] Oral 360 Other: # Voids 1 Weight 68.039 kg PHYSICAL EXAMINATION: Patient is lying in the bed comfortably, no acute distress, awake alert and oriented.. HEENT: Normocephalic. Neck is supple. Pupils reactive. Nostrils clear. Oral cavity is moist. Neck reveals no JVD, carotid bruits, or thyromegaly. CHEST EXAMINATION: Trachea is central. Symmetrical expansion. Lung cevallos clear to auscultation and percussion. CARDIAC: Normal S1, S2 with no gallops. No murmurs ABDOMEN: Soft. Bowel sounds present. Nontender. No organomegaly. No abdominal bruits. Extremities: reveal no edema. No clubbing or cyanosis Neurologically awake, alert, oriented x3 with well-coordinated movements. No focal deficits noted Skin: No rash or skin lesions. Scalp wound without evidence of infection. Psychiatric: Coperative. Nonsuicidal, Musculoskeletal: No joint swelling or deformity. Normal range of motion. Results CBC & Chem 7: 10/11/22 06:20 10/11/22 06:20 Labs: Abnormal Lab Results - Last 24 Hours (Table) 10/09/22 10/09/22 10/09/22 Range/Units 18:19 18:19 18:19 RBC 3.55 L (4.30-5.90) m/uL Hgb 8.3 L (13.0-17.5) gm/dL Hct 26.5 L (39.0-53.0) % MCV 74.7 L (80.0-100.0) fL MCH 23.5 L (25.0-35.0) pg MCHC (32.0-37.0) d/dL RDW (11.5-14.5) % Eosinophils # (0.04-0.35) X 10*3/uL Basophils # (0.00-0.10) X 10*3/uL APTT 21.7 L (22.0-30.0) sec Glucose 105 H (74-99) mg/dL Albumin 3.3 L (3.5-5.0) g/dL Lipase 357 H (23-300) U/L 10/10/22 Range/Units 06:28 RBC 3.09 L (4.30-5.90) m/uL Hgb 7.0 L (13.0-17.5) gm/dL Hct 23.4 L (39.0-53.0) % MCV 75.7 L (80.0-100.0) fL MCH 22.7 L (25.0-35.0) pg MCHC 29.9 L (32.0-37.0) d/dL RDW 15.1 H (11.5-14.5) % Eosinophils # 0.58 H (0.04-0.35) X 10*3/uL Basophils # 0.11 H (0.00-0.10) X 10*3/uL APTT (22.0-30.0) sec Glucose (74-99) mg/dL Albumin (3.5-5.0) g/dL Lipase (23-300) U/L Thrombosis Risk Factor Assmnt - DVT/VTE Prophylaxis DVT/VTE Prophylaxis: Mechanical Prophylaxis ordered - Choose All That Apply Any of the Below Risk Factors Present?: No Other Risk Factors: No Other congenital or acquired thrombophilia - If yes, enter type in comment: No Thrombosis Risk Factor Assessment Level: Very Low Risk Assessment and Plan Assessment: Symptomatic anemia Acute on chronic GI bleed likely lower. Patient does have rectal bleeding/clots for the past 6 weeks. Prior history of internal hemorrhoids and history of colonoscopy 3 years ago History of recent scalp abscess. DVT prophylaxis with SCDs Plan: Patient will be current on IV hydration and PPI. Continue to monitor H&H. Was seen by gastroenterology and is planning for EGD and colonoscopy tomorrow. Follow-up closely. Time with Patient: Greater than 30
--- NOTE | 2022-10-11 07:36 | CONS ---
CONSULTATION REQUESTING PHYSICIAN: None. REASON FOR CONSULTATION: Severe symptomatic anemia. HISTORY OF PRESENT ILLNESS: The patient is a 31-year-old white male admitted to the hospital with DICTATION ENDS HERE MMODL / IJN: [id number] /
[2022-10-11] MEDS: PANTOPRAZOLE 40 MG/10 ML VIAL IVP SCH (08:12)
[2022-10-11 11:10] LABS: Basophils # (A) 0.08 X 10*3/uL (0.00-0.10); Basophils % (A) 1.2 %; Eosinophils # (A) 0.57 X 10*3/uL (0.04-0.35); Eosinophils % (A) 8.3 %; HGB 6.9 d/dL (12.0-15.0); Lymphocytes # (A) 1.49 X 10*3/uL (0.90-5.00); Lymphocytes % (A) 21.7 %; MCH 22.1 pg (27.0-32.0); MCHC 28.8 d/dL (32.0-37.0); MCV 76.9 FL (80.0-97.0); Mean Platelet Volume 11.4 FL (9.5-12.2); Monocytes # (A) 0.82 X 10*3/uL (0.20-1.00); Monocytes % (A) 11.9 %; NRBC Per 100 WBC 0 X 10*3/uL (0.00-0.01); Neutrophils % (A) 56.6 %; Platelet Count 454 X 10*3/uL (140-440); RBC 3.12 X 10*6/uL (4.40-5.60); RDW 14.9 % (11.5-14.5); WBC 6.88 X 10*3/uL (4.50-10.00)
[2022-10-11 11:40] LABS: BUN/Creat Ratio 7.91 Ratio (12.00-20.00); Blood Urea Nitrogen 8.7 mg/dL (9.0-27.0); Calcium 8.5 mg/dL (8.7-10.3); Chloride 105 mmol/L (96-109); Glucose 84 mg/dL (70-110); Potassium 4.3 mmol/L (3.5-5.5); Sodium 140 mmol/L (135-145)
[2022-10-11] MEDS: SODIUM CHLORIDE 0.9% 1,000 ML IV SCH (12:10)
[2022-10-11] MEDS: FERROUS SULFATE 325 MG TAB PO SCH (12:10)
[2022-10-11] MEDS ORDERED: IV FLUID CONTINUATION 1,000 ML IV ONE (12:50)
[2022-10-11] MEDS ORDERED: LIDOCAINE 2% INJ 20 MG/ML (2 ML VIAL) ONE (13:04)
[2022-10-11] MEDS ORDERED: PROPOFOL 10 MG/ML 20 ML VIAL IV ONE (13:04)
[2022-10-11] MEDS ORDERED: predniSONE 20 MG TAB PO STA (13:22)
--- NOTE | 2022-10-11 13:22 | P.PCN ---
Date of Procedure: 10/11/22 Procedure(s) Performed: Brief history: Patient is a pleasant 31-year-old white male admitted to the hospital with severe symptomatic anemia and hemoglobin of 7 g/dL. 3 weeks ago his hemoglobin was 6.5 g/dL and quite interfere basis transfusion. His been complaining of intermittent rectal bleeding. He is hence scheduled for an upper endoscopy as well as colonoscopy as a part of evaluation of iron deficiency anemia Procedure performed: Esophagogastroduodenoscopy with biopsy Colonoscopy with biopsy Preoperative diagnosis: Findings deficiency anemia and intermittent rectal bleeding Anesthesia: MAC Procedure: After informed consent was obtained from the patient was brought into the endoscopy unit and IV sedation was administered by anesthesia under continuous monitoring. Initially upper endoscopy was done. The Olympus GF 160 video endoscope was inserted inserted into the mouth and esophagus intubated without any difficulty and was gradually advanced into the stomach and duodenum and carefully examined. The bulb and second part of the duodenum appeared normal. Biopsies were done from the duodenum to rule out celiac disease. The scope was then withdrawn into the stomach adequately insufflated with air and upon careful examination the antrum had mild erythema and biopsies were done from this area. Mucosa of the body, cardia and fundus appeared normal. The scope was then withdrawn into the esophagus. The GE junction was located at 40 cm to the incisors. It appeared regular with no erythema but months ago which was consistent with LA grade a reflux esophagitis.. Rest of the esophagus appeared normal. Patient tolerated the procedure well. At this time the patient continued to remain sedation. Initial digital rectal examination was normal. Olympus CF 160 video colonoscope was then inserted into the rectum and gradually advanced to the cecum without any difficulty. Careful examination was performed as the scope was gradually being withdrawn. The prep was excellent. Terminal ileum was intubated and 20 cm visualized and appeared normal. The cecum, appeared normal. Mucosa of the ascending colon, transverse colon, descending colon, sigmoid colon and rectum had mucosal erythema, friability, granularity and spontaneous oozing consistent with ulcerative coli tis and multiple biopsies were done in different areas of the colon. Retroflexion was performed in the rectum and no lesions were noted. Patient tolerated the procedure well. Impression: 1. Upper endoscopy revealed mild antral gastritis and LA grade a reflux esophagitis 2. Colonoscopy revealed diffuse colitis involving the entire colon except the cecum with mucosal erythema friability, granularity and spontaneous oozing consistent with ulcerative colitis. Status post multiple biopsies. Recommendations: Findings of this examination were discussed with the patient . He was advised to follow with the biopsy results. in the meantime he'll be started on prednisone 40 mg daily orally and mesalamine 4.8 g daily. He can be discharged home with outpatient follow-up in 2 weeks.
[2022-10-11 14:00] VITALS: RESP 16
[2022-10-11 17:33] VITALS: BP 116/73; PULSE 90; TEMP 98.1
--- NOTE | 2022-10-14 10:34 | P.DS ---
Providers Date of admission: 10/09/22 20:06 Expected date of discharge: 10/11/22 Attending physician: Manan Anguiano Consults: 10/09/22 20:29 Consult Physician Urgent Consulting Provider: Samantha Velasquez Consult Reason/Comments: recurrent gi bleed Do you want consulting provider notified?: Yes Primary care physician: Stated None Hospital Course: Final diagnosis Symptomatic anemia most likely secondary to ulcerative colitis as noted on colonoscopy Acute on chronic GI bleed likely lower. Patient does have rectal bleeding/clots for the past 6 weeks. Antral gastritis noted on EGD with esophagitis as well as ulcerative colitis noted on colonoscopy Prior history of internal hemorrhoids and history of colonoscopy 3 years ago History of recent scalp abscess. DVT prophylaxis with SCDs Discharge disposition Patient is being discharged in a stable condition with guarded prognosis to home. Patient will follow-up with Dr. Hernandes in the outpatient setting upon discharge. Patient is to follow-up with GI outpatient as scheduled. Patient to continue on steroid taper and close outpatient follow-up. Total time taken is greater than 35 minutes. Hospital course This is a 31-year-old male who was recently admitted with lower rectal bleeding having large bloody bowel movements with clots and anemia requiring transfusion. Patient underwent EGD colonoscopy with GI showing antral gastritis with esophagitis and colitis consistent in the bowels with ulcerative colitis noted. Patient will be continued on prednisone taper and close outpatient follow-up. Patient is receiving a unit of PRBC and recommended follow-up labs the next 2-3 days prior to discharge. Patient has been cleared by GI for outpatient follow- up. Please refer to other consultation notes for further HPI. Currently no reports of chest pain, shortness of breath, or palpitations. Patient is afebrile. No reports of nausea or vomiting and patient is tolerating diet. Patient will be discharged home today. Guarded prognosis. Physical exam: Gen: This is a 31-year-old male who is awake, alert and oriented 3, thin built, well-developed HEENT: Head is atraumatic, normocephalic. Pupils equal, round. Sclerae is anicteric. NECK: Supple. No JVD. No lymphadenopathy. No thyromegaly. LUNGS: Clear to auscultation. No wheezes or rhonchi. No intercostal retractions. HEART: Regular rate and rhythm. No murmur. ABDOMEN: Soft. Bowel sounds are present. No masses. No tenderness. EXTREMITIES: No pedal edema. No calf tenderness. NEUROLOGICAL: Patient is awake, alert and oriented x3. Cranial nerves 2 through 12 are grossly intact. Please refer to medication reconciliation sheet for a list of medications. The impression and plan of care has been dictated by Emily Crain, Nurse Practitioner as directed. Dr. Silvio MD I have performed a history and examination and MDM of this patient, discussed the same with the dictator, and agree with the dictator's assessment and plan as written ,documented as a scribe. Based on total visit time, I have performed more than 50% of the visit. Patient Condition at Discharge: Stable Plan - Discharge Summary New Discharge Prescriptions: New predniSONE 0 mg PO DIRECTED #126 tab Acetaminophen Tab [Tylenol] 650 mg PO Q6HR PRN tab PRN Reason: Mild Pain Or Fever > 100.5 Continue Famotidine [Pepcid] 20 mg PO BID PRN PRN Reason: ACID REFLUX Ferrous Sulfate [Feosol] 325 mg PO BID Mupirocin 2% Oint [Bactroban 2% Oint] 1 applic TOPICAL TID Discontinued Ibuprofen [Advil] 200 - 600 mg PO Q8H PRN PRN Reason: Pain Discharge Medication List Famotidine [Pepcid] 20 mg PO BID PRN 10/09/22 [History] Ferrous Sulfate [Feosol] 325 mg PO BID 10/09/22 [History] Mupirocin 2% Oint [Bactroban 2% Oint] 1 applic TOPICAL TID 10/09/22 [History] Acetaminophen Tab [Tylenol] 650 mg PO Q6HR PRN tab 10/11/22 [Rx] predniSONE 0 mg PO DIRECTED #126 tab 10/11/22 [Rx] Follow up Appointment(s)/Referral(s): Samantha Velasquez MD [STAFF PHYSICIAN] - 2 Weeks (please call office to schedule a follow up appointment. [phone]) Ambulatory/Diagnostic Orders: Complete Blood Count w/diff [LAB.AMB] Time Frame: 3 Days, Location: None Selected Patient Instructions/Handouts: Anemia (DC), Colitis (ED) Activity/Diet/Wound Care/Special Instructions: Activity Limited until follow-up Follow-up with GI in 1-2 weeks Continue with medications as prescribed Follow-up with primary care provider and establish outpatient Recommend repeat CBC in the next 2-3 days to monitor hemoglobin Discharge Disposition: HOME SELF-CARE
== END 2022-10-11 17:45 | disposition home or self-care (01) ==
LOC: EC 17:33 → 5NMEDONC 20:06 → INTOOBSV 20:06 → 5NMEDONC 21:16 → UNDODISIN 10-11 17:45
PROVIDERS: ADMIT Internal Medicine; ATTEND Internal Medicine
DX: K29.80 Duodenitis without bleeding (principal); K29.50 Unspecified chronic gastritis without bleeding; K52.9 Noninfective gastroenteritis and colitis, unspecified; K62.89 Other specified diseases of anus and rectum; K21.00 Gastro-esophageal reflux disease with esophagitis, without bleeding; D50.9 Iron deficiency anemia, unspecified; Z79.899 Other long term (current) drug therapy; Z88.1 Allergy status to other antibiotic agents
CPT/HCPCS: 36415; 43239; 45380; 80048; 80053; 82140; 82272; 83605; 83690; 84484; 85025; 85610; 85730; 86850; 86900; 86901; 86920; 88305; 88342; 93005; 96361; 96374; 96376; 99285

== ENCOUNTER → 2022-12-12 | Outpatient (CLI) | payer BC ==
[2022-12-12 21:25] LABS: Basophils # (A) 0.07 X 10*3/uL (0.00-0.10); Basophils % (A) 0.6 %; Eosinophils # (A) 0.14 X 10*3/uL (0.04-0.35); Eosinophils % (A) 1.2 %; HCT 34.7 % (39.6-50.0); Lymphocytes # (A) 1.29 X 10*3/uL (0.90-5.00); Lymphocytes % (A) 11.2 %; MCH 22.7 pg (27.0-32.0); MCHC 28.8 d/dL (32.0-37.0); MCV 78.7 FL (80.0-97.0); Monocytes # (A) 1.09 X 10*3/uL (0.20-1.00); Monocytes % (A) 9.4 %; NRBC Per 100 WBC 0 X 10*3/uL (0.00-0.01); Neutrophils % (A) 77.2 %; Platelet Count 326 X 10*3/uL (140-440); RBC 4.41 X 10*6/uL (4.40-5.60); RDW 16.6 % (11.5-14.5); WBC 11.54 X 10*3/uL (4.50-10.00)
[2022-12-12 21:39] LABS: Erythrocyte Sedimentation Rate 8 mm/Hr (0-15)
[2022-12-12 21:58] LABS: ALT 21 U/L (10-49); AST 17 U/L (14-35); Alkaline Phosphatase 38 U/L (41-126); BUN/Creat Ratio 11.17 Ratio (12.00-20.00); Blood Urea Nitrogen 13.4 mg/dL (9.0-27.0); Calcium 9.3 mg/dL (8.7-10.3); Carbon Dioxide 26.5 mmol/L (21.6-31.8); Chloride 105 mmol/L (96-109); Globulin 2.1 d/dL (1.6-3.3); Glucose 108 mg/dL (70-110); Potassium 4.9 mmol/L (3.5-5.5); Sodium 141 mmol/L (135-145); Total Bilirubin <0.2 mg/dL (0.3-1.2); Total Protein 6.1 d/dL (6.2-8.2)
== END | disposition home or self-care (01) ==
LOC: LABWHC1 12:17
PROVIDERS: ATTEND Internal Medicine Gastroenterology
DX: K51.011 Ulcerative (chronic) pancolitis with rectal bleeding (principal)
CPT/HCPCS: 36415; 80053; 85025; 85652; 86140

== ENCOUNTER 2024-09-26 16:12 | Emergency (ER) | payer BC ==
--- NOTE | 2024-09-26 17:16 | ED ---
General Adult HPI - General Source: patient, RN notes reviewed Mode of arrival: ambulatory Limitations: no limitations <Zhang Sheikh - Last Filed: 09/26/24 17:15> - General Source: patient, RN notes reviewed <Anuradha Boland - Last Filed: 09/26/24 23:32> - General Chief complaint: Recheck/Abnormal Lab/Rx Stated complaint: Abcess on tailbone Time Seen by Provider: 09/26/24 16:30 - History of Present Illness Initial comments: Quick note: This is a 33-year-old male presenting for tailbone abscess x 7 days. Patient states he suffered a fall backwards onto his gluteus several days prior to abscess formation. States abscess is red and tender. Patient states pain is worse when seated. Endorses history of pilonidal cyst. (Zhang Sheikh) 33-year-old male presenting for tailbone abscess x 7 days. States approximately 10 days ago he had a mechanical trip and fall backwards onto his buttocks. Several days after that abscess began to form and is red, warm, and tender. He does have a history of a pilonidal abscess 9 years ago. Denies fevers, nausea, vomiting. (Anuradha Boland) - Related Data Home Medications Medication Instructions Recorded Confirmed Ferrous Sulfate [Feosol] 325 mg PO BID 10/09/22 03/28/24 inFLIXimab [Remicade] 0 mg IVPB DIRECTED 02/29/24 03/28/24 Previous Rx's Medication Instructions Recorded predniSONE 0 mg PO DIRECTED #126 tab 10/11/22 Amoxic-Pot Clav 875-125Mg 1 tab PO Q12HR 7 Days #14 tab 09/26/24 [Augmentin 875-125] Allergies Allergy/AdvReac Type Severity Reaction Status Date / Time cefuroxime [From Ceftin] AdvReac Diarrhea Verified 03/28/24 11:35 Review of Systems ROS Other: All systems not noted in ROS Statement are negative. <Zhang Sheikh - Last Filed: 09/26/24 17:15> ROS Other: All systems not noted in ROS Statement are negative. <Anuradha Boland - Last Filed: 09/26/24 23:32> ROS Statement: Those systems with pertinent positive or pertinent negative responses have been documented in the HPI. Past Medical History Past Medical History: Skin Disorder Additional Past Medical History / Comment(s): acne, constipation, blood in stool. History of Any Multi-Drug Resistant Organisms: None Reported Past Surgical History: Orthopedic Surgery Additional Past Surgical History / Comment(s): cyst on back removed, arthroscopy knee. Past Anesthesia/Blood Transfusion Reactions: No Reported Reaction Past Psychological History: No Psychological Hx Reported Smoking Status: Never smoker Past Alcohol Use History: None Reported Past Drug Use History: None Reported - Past Family History Mother Family Medical History: No Reported History <Zhang Sheikh - Last Filed: 09/26/24 17:15> General Exam Limitations: no limitations <Zhang Sheikh - Last Filed: 09/26/24 17:15> General appearance: alert, in no apparent distress Head exam: Present: atraumatic, normocephalic, normal inspection Eye exam: Present: normal appearance, PERRL, EOMI. Absent: scleral icterus, conjunctival injection, periorbital swelling Back exam: Present: normal inspection, full ROM Neurological exam: Present: alert, oriented X3 Skin exam: Present: warm, dry, intact, normal color, other (There is a 4 x 5 cm fluctuant mass present superior to the rectum, no active drainage). Absent: rash <Anuradha Boland - Last Filed: 09/26/24 23:32> - General Exam Comments Initial Comments: Visual Physical Exam Vital signs reviewed General: Well-appearing, nontoxic, no acute distress. Head: Normocephalic, atraumatic Eyes: PERRLA, EOMI ENT: Airway patent Chest: Nonlabored breathing Skin: No visual rash, normal skin tone Neuro: Alert and oriented 3 Musculoskeletal: No gross abnormalities (Zhang Sheikh) Course Vital Signs 09/26/24 16:20 Temperature 97.9 F Pulse Rate 116 H Respiratory 18 Rate Blood Pressure 133/89 O2 Sat by Pulse 100 Oximetry Procedures - Incision & Drainage Consent Obtained: verbal consent Indication: Abscess Site: buttock Size (cm): 5 Anesthetic Used: lidocaine 1%, without epi Amount (mLs): 4 I&D Cleaning Method: Betadine Sterile Field Used?: No Scalpel Used: #11 Ultrasound used: No Needle Aspiration Performed?: No Irrigation Performed?: No I&D Drainage Obtained: Pus, Blood Culture Obtained?: No Patient Tolerated Procedure: well, no complications <Anuradha Boland - Last Filed: 09/26/24 23:32> Medical Decision Making <Zhang Sheikh - Last Filed: 09/26/24 17:15> <Anuradha Boland - Last Filed: 09/26/24 23:32> - Medical Decision Making I completed the quick note portion of this chart signed JASMINA Randle (Zhang Sheikh) Was pt. sent in by a medical professional or institution (PHIL Levine, MANAGER OF TRAINING AND DEVELOPMENT, urgent care, hospital, or skilled nursing...) When possible be specific @ -No Did you speak to anyone other than the patient for history (EMS, parent, family, police, friend...)? What history was obtained from this source @ -No Did you review nursing and triage notes (agree or disagree)? Why? @ -I reviewed and agree with nursing and triage notes Were old charts reviewed (outside hosp., previous admission, EMS record, old EKG, old radiological studies, urgent care reports/EKG's, skilled nursing records)? Report findings @ -No old charts were reviewed Differential Diagnosis (chest pain, altered mental status, abdominal pain women, abdominal pain men, vaginal bleeding, weakness, fever, dyspnea, syncope, headache, dizziness, GI bleed, back pain, seizure, CVA, palpatations, mental health, musculoskeletal)? @ -Differential Musculoskeletal Abscess, muscular strain, contusion, ligament sprain, fracture, arthritis, septic arthritis, bursitis, cellulitis, muscle spasm, nerve compression, DVT, arterial occlusion, herpes zoster, electrolyte abnormality, tumor.... This is not meant to be in all inclusive list EKG interpreted by me (3pts min.). @ -None X-rays interpreted by me (1pt min.). @ -Lumbosacral x-ray negative for acute process CT interpreted by me (1pt min.). @ -None done U/S interpreted by me (1pt. min.). @ -None done What testing was considered but not performed or refused? (CT, X-rays, U/S, labs)? Why? @ -None What meds were considered but not given or refused? Why? @ -None Did you discuss the management of the patient with other professionals (professionals i.e. PHIL Levine, MANAGER OF TRAINING AND DEVELOPMENT, lab, RT, psych nurse, social worker school, lip cutter and scorer, teacher, air intelligence officer, case mgr)? Give summary @ -No Was smoking cessation discussed for >3mins.? @ -No Was critical care preformed (if so, how long)? @ -No Were there social determinants of health that impacted care today? How? (Homelessness, low income, unemployed, alcoholism, drug addiction, transportat ion, low edu. Level, literacy, decrease access to med. care, fpc, rehab)? @ -No Was there de-escalation of care discussed even if they declined (Discuss DNR or withdrawal of care, Hospice)? DNR status @ -No What co-morbidities impacted this encounter? (DM, HTN, Smoking, COPD, CAD, Cancer, CVA, ARF, Chemo, Hep., AIDS, mental health diagnosis, sleep apnea, morbid obesity)? @ -None Was patient admitted / discharged? Hospital course, mention meds given and route, prescriptions, significant lab abnormalities, going to OR and other pertinent info. @ -Discharge. 33-year-old male presenting for abscess on tailbone x 7 days. Patient is afebrile. Denies systemic symptoms. There is a 4 x 5 cm fluctuant mass present superior to rectum consistent with pilonidal abscess. Successful incision and drainage was performed. Patient was provided with outpatient prescription for antibiotics and advised to follow-up with general surgery. Appropriate return precautions and supportive care discussed. Advised to apply warm compresses 3 times daily. Case was discussed with my ED attending Dr. Muniz. Undiagnosed new problem with uncertain prognosis? @ -No Drug Therapy requiring intensive monitoring for toxicity (Heparin, Nitro, Insulin, Cardizem)? @ -No Were any procedures done? @ -No Diagnosis/symptom? @ -Pilonidal abscess Acute, or Chronic, or Acute on Chronic? @ -Acute Uncomplicated (without systemic symptoms) or Complicated (systemic symptoms)? @ -Uncomplicated Side effects of treatment? @ -No Exacerbation, Progression, or Severe Exacerbation? @ -[No Poses a threat to life or bodily function? How? (Chest pain, [place], [place], pneumonia, PE, COPD, DKA, ARF, appy, cholecystitis, CVA, Diverticulitis, Homicidal, Suicidal, threat to staff... and all critical care pts) @ -No (Anuradha Boland) Disposition <Zhang Sheikh - Last Filed: 09/26/24 17:15> Is patient prescribed a controlled substance at d/c from ED?: No Time of Disposition: 23:30 <KrystianAnuradha - Last Filed: 09/26/24 23:32> Clinical Impression: Pilonidal abscess Disposition: HOME SELF-CARE Condition: Stable Instructions (If sedation given, give patient instructions): Pilonidal Cyst (ED) Additional Instructions: Take Augmentin twice daily for 7 days. Follow-up with general surgery as discussed. Apply warm compresses 3 times daily to the affected area. Please return to the Emergency Department if symptoms worsen or any other concerns. Prescriptions: Amoxic-Pot Clav 875-125Mg [Augmentin 875-125] 1 tab PO Q12HR 7 Days #14 tab Referrals: Bienvenido Bauer MD [Primary Care Provider] - 1-2 days
--- NOTE | 2024-09-26 18:14 | XR ---
EXAMINATION TYPE: XR sacrum coccyx DATE OF EXAM: 09/26/2024 6:04 PM INDICATION: Patient age:Male; 33 years old; Reason for study: Fall onto tailbone; PHH. pain COMPARISON: None TECHNIQUE: The sacrum/coccyx was examined in 3 projections. FINDINGS: There is no evidence of fracture or dislocation. Both SI joints appear intact. There is no soft tissue abnormality. Couple of pelvic phleboliths. Multilevel degenerative changes of the lower spine. IMPRESSION: No acute osseous pathology. [facility], , 09/26/2024 6:11 PM
[2024-09-26] MEDS: KETOROLAC 15 MG/ML 1 ML VIAL IM STA (22:43)
[2024-09-26] MEDS: LIDOCAINE 1% INJ 10MG/ML (20 ML MDV) SQ ONE (22:44)
[2024-09-26 23:30] VITALS: BP 129/92; PULSE 97; RESP 22; TEMP 98.7
[2024-09-26] MEDS: AMOXIC-POT CLAV 875-125MG 1 EACH TAB PO STA ×3 (23:36→23:38)
== END 2024-09-26 23:40 | disposition home or self-care (01) ==
LOC: EC 16:12
DX: L05.01 Pilonidal cyst with abscess (principal); Z88.1 Allergy status to other antibiotic agents
CPT/HCPCS: 72220; 99283; 10080; 96372; J2003; J1885